=== PATIENT | female | born 1950 | race Caucasian/White ===

== ENCOUNTER 2018-10-10 09:51 | Outpatient (CLI) | payer MEDICARE, SELFPAY ==
[2018-10-10 10:36] LABS: ALT 38 U/L (12-78); AST 26 U/L (15-37); Albumin 4.1 g/dL (3.4-5.0); Alkaline Phosphatase 116 U/L (46-116); Anion Gap 9.3 mmol/L (3-11); BUN 22 mg/dL (7-18); Bilirubin, Total 0.6 mg/dL (0.2-1.0); CO2 26.7 mmol/L (21.0-32.0); CREATININE 1.58 mg/dL (0.55-1.02); Calcium 9.3 mg/dL (8.5-10.1); Chloride 102 mmol/L (98-107); Estimated GFR 32.52 (mL/min/1.73m2); Glucose 96 mg/dL (70-100); Potassium 4.7 mmol/L (3.5-5.1); Sodium 138 mmol/L (136-145); Total Protein 7.8 g/dL (6.4-8.2)
[2018-10-10 10:58] LABS: Cholesterol 197 mg/dL (50-200); HDL Cholesterol 84 mg/dL (40-60); LDL CHOLESTEROL 102 mg/dL (<100); Triglyceride 84 mg/dL (30-150)
== END 2018-10-10 10:11 ==
PROVIDERS: PCP Family Medicine; Visit Provider Family Medicine
DX: E78.5 Hyperlipidemia, unspecified (principal); E03.9 Hypothyroidism, unspecified
CPT/HCPCS: 36415; 80053; 80061; 83721

== ENCOUNTER 2018-11-13 10:14 | Outpatient (CLI) | payer MEDICARE, SELFPAY ==
[2018-11-13 12:00] LABS: Folate 15.9 ng/mL (8.6-20.0); TSH (W/Ref FT4) 0.75 uIU/mL (0.358-3.74); Vitamin B12 464 pg/mL (193-986)
[2018-11-13 12:05] LABS: ESR 19 MM/HR (0-30)
[2018-11-15 12:11] LABS: Syphilis Serology (RPR) Negative (Negative)
[2018-11-16 09:06] LABS: Thiamine (Vitamin B1), WB 170 nmol/L (70-180)
== END 2018-11-13 10:34 ==
PROVIDERS: PCP Family Medicine; Visit Provider Family Medicine
DX: R47.01 Aphasia (principal); E03.9 Hypothyroidism, unspecified
CPT/HCPCS: 36415; 85652; 82607; 82746; 84425; 84443; 86592

== ENCOUNTER 2019-06-21 08:50 | Outpatient (REF) | payer MEDICARE, SELFPAY ==
[2019-06-21 11:20] LABS: BUN 26 mg/dL (7-18); CREATININE 1.81 mg/dL (0.55-1.02); Calcium 9.4 mg/dL (8.5-10.1); Chloride 104 mmol/L (98-107); Estimated GFR 27.72 (mL/min/1.73m2); Glucose 97 mg/dL (70-100); Potassium 4.5 mmol/L (3.5-5.1); Sodium 141 mmol/L (136-145)
== END 2019-06-21 09:10 ==
LOC: LBN 08:50
PROVIDERS: PCP Family Medicine; Visit Provider Family Medicine
DX: Z01.818 Encounter for other preprocedural examination (principal); F01.50 Vascular dementia, unspecified severity, without behavioral disturbance, psychotic disturbance, mood disturbance, and anxiety; R41.3 Other amnesia
CPT/HCPCS: 80048

== ENCOUNTER 2019-11-09 11:33 | Outpatient (CLI) | payer MEDICARE, SELFPAY ==
[2019-11-09 13:44] LABS: ALT 35 U/L (14-59); AST 20 U/L (15-37); Albumin 4.3 g/dL (3.4-5.0); Alkaline Phosphatase 115 U/L (46-116); Anion Gap 5.6 mmol/L (3-11); BUN 26 mg/dL (7-18); Bilirubin, Total 0.6 mg/dL (0.2-1.0); CO2 30.4 mmol/L (21.0-32.0); CREATININE 1.75 mg/dL (0.55-1.02); Calcium 10.1 mg/dL (8.5-10.1); Chloride 104 mmol/L (98-107); Estimated GFR 28.82 (mL/min/1.73m2); Ferritin 51 ng/mL (8-252); Glucose 81 mg/dL (74-106); Sodium 140 mmol/L (136-145); TSH (W/Ref FT4) 1.81 uIU/mL (0.36-3.74); Total Protein 7.4 g/dL (6.4-8.2); Vitamin B12 462 pg/mL (193-986)
[2019-11-12 05:14] LABS: Vitamin D 25 Total 48.4 ng/ml (30-100)
== END 2019-11-09 11:53 ==
PROVIDERS: PCP Family Medicine; Visit Provider Internal Medicine Sleep Medicine
DX: E55.9 Vitamin D deficiency, unspecified (principal); R53.83 Other fatigue; M25.50 Pain in unspecified joint
CPT/HCPCS: 36415; 80053; 82306; 82607; 82728; 84443

== ENCOUNTER 2019-11-26 16:01 | Outpatient (CLI) | payer MEDICARE, SELFPAY ==
--- NOTE | 2019-11-26 16:11 | DI.RAD_ITS ---
EXAM: XR CHEST 2V PA AND LATERAL INDICATION: 3 MONTHS OF DRY COUGH R05. COMPARISON: ABD FLAT UPRIGHT PA CHEST from 02/26/2011 TECHNIQUE: 2D digital imaging was performed. FINDINGS: Heart size is normal. The aorta is tortuous. The lungs clear. No infiltrate or effusion is seen. There are no visible emphysematous or fibrotic changes. IMPRESSION: No acute abnormality.
--- NOTE | 2019-11-26 16:23 | DI.VRAD_ITS ---
PROCEDURE INFORMATION: Exam: XR Chest, 2 Views Exam date and time: 11/26/2019 4:14 PM Age: 68 years old Clinical indication: Other: 3 months of dry cough TECHNIQUE: Imaging protocol: XR of the chest Views: 2 views. COMPARISON: No relevant prior studies available. FINDINGS: Lungs: Unremarkable. No consolidation. Pleural space: Unremarkable. No pleural effusion. No pneumothorax. Heart/Mediastinum: Unremarkable. No cardiomegaly. Bones/joints: Unremarkable. Other findings: Contrast within loops of bowel in the abdomen IMPRESSION: No acute process Dictated and Authenticated by: Rizwana Borja MD. Ordering:JAYNE Prescott MD
== END 2019-11-26 16:21 ==
PROVIDERS: PCP Family Medicine; Visit Provider Family Medicine
DX: R05 Cough (principal)
CPT/HCPCS: 71046

== ENCOUNTER 2019-11-27 12:56 | Outpatient (CLI) | payer MEDICARE, SELFPAY ==
--- NOTE | 2019-11-27 13:12 | PFT_ITS ---
PULMONARY FUNCTION TEST REPORT DATE OF SERVICE: November 27, 2019 REQUESTING PROVIDER: Kenyon Gifford D.O. Spirometry shows no evidence of obstructive airways disease, no bronchodilator response. Lung volumes show mild restriction with very severe reduction in ERV. This may be related to chest wall restriction, neuromuscular respiratory dysfunction or obesity. Diffusion capacity moderately reduced, which is normal when corrected to alveolar volume. Airways resistance normal. IMPRESSION: Mild restrictive pattern with very severely reduced ERV. This could correlate with underlying obesity or respiratory neuromuscular dysfunction or chest wall restriction. Therefore clinical correlation recommended. When compared to previous study from 06/22/10, the patient has a 370 cc's decline in FVC. FEV1 has declined by 340 cc's. On previous study it appears that total lung capacity or diffusion capacity were not measured. This constellation of findings can also be seen in restrictive lung disease. ROBERTA/kerwin D/
[2019-11-27] MEDS: Inhaler, Assist Device 1 EACH MC (14:06)
[2019-11-27] MEDS: Albuterol HFA 18 GM 200 PUFF INH IH (14:06)
== END 2019-11-27 13:16 ==
PROVIDERS: PCP Family Medicine; Visit Provider Family Medicine
DX: R05 Cough (principal); R94.2 Abnormal results of pulmonary function studies
CPT/HCPCS: 94060; 94150; 94726; 94729

== ENCOUNTER 2020-03-20 22:00 | Emergency (ER) | payer MEDICARE, SELFPAY ==
[2020-03-20] VITALS (7 sets, daily range): BP systolic 140–166; BP diastolic 61–112; PULSE 76–105; RESP 16–25; TEMP 36.7; O2SAT 94–98
--- NOTE | 2020-03-20 22:17 | ED.GENADUL_ITS ---
Discharge Plan Disposition Patient Disposition: HOME Condition: Improving Discharge Details Chief Complaint: Chest Pain Clinical Impression: Atypical chest pain Primary Care Provider: Kenyon Gifford ED Provider: Buck Merrill Home Meds and New Rx's Prescriptions: Continued hydroxyzine HCl 10 mg tablet 10 mg PO TID PRNRF: 0 sumatriptan succinate 100 mg tablet 100 mg PO PRN RF: 0 magnesium oxide 500 mg capsule 500 mg PO DAILY RF: 0 nortriptyline 50 mg capsule 150 mg PO HS RF: 0 cholecalciferol (vitamin D3) 1,000 UNIT tablet 2,000 unit PO DAILY RF: 0 Refresh Optive Sensitive (PF) 1 EACH dropperette 1 ea OU PRN PRNRF: 0 cetirizine [Zyrtec] 10 mg tablet 10 mg PO DAILY PRNRF: 0 Restasis 0.05 % dropperette 1 drp OP DAILY RF: 0 coenzyme Q10 100 mg capsule 200 mg PO DAILY RF: 0 magnesium gluconate [Mag-G] 27 mg magnesium (500 mg) tablet 27 mg PO DAILY RF: 0 acetaminophen [Tylenol] 325 mg tablet 650 mg PO Q4H PRNRF: 0 clindamycin phosphate 1 % solution 1 applic Topical BID Qty: 60 RF: 0 albuterol sulfate 90 mcg/actuation HFA aerosol inhaler 2 puff IH Q6H PRNRF: 0 venlafaxine 150 mg capsule,extended release 24hr See Rx Instructions PO DAILY RF: 0 escitalopram oxalate [Lexapro] 5 mg tablet 5 mg PO .COMPLEX RF: 0 gabapentin 300 mg capsule 300 mg PO BID RF: 0 Hold Instructions: Home Medication placed on hold at Doctor's office levothyroxine [Synthroid] 75 mcg tablet 75 mcg PO DAILY Qty: 90 RF: 3 pravastatin 20 mg tablet 20 mg PO DAILY Qty: 90 RF: 3 Hold Instructions: Home Medication placed on hold at Doctor's office aspirin [Adult Aspirin Regimen] 81 mg tablet,delayed release (DR/EC) 81 mg PO DAILY RF: 0 Arnuity Ellipta 200 mcg/actuation blister with device 1 inh IH HS RF: 0 benzonatate [Tessalon Perles] 100 mg capsule 100 mg PO TID PRN (Reason: cough) Qty: 90 RF: 0 Trelegy Ellipta 100-62.5-25 mcg blister with device 1 inh IH DAILY RF: 0 Discharge Instructions Instructions: Chest Pain (ED) Additional Instructions: Please continue your regularly prescribed medications. Avoid fatty, fried, spicy or acidic foods 3 to 4 hours before bedtime. May use Tums if needed for upset stomach. We will ask care management to arrange an outpatient follow-up for you in primary care clinic as you are kidney function showed you to be slightly dehydrated. May continue small, frequent sips of fluids to maintain hydration. Return to the emergency department for any acute concerns. Medical Decision Making 69-year-old female with an extensive past medical history including mood disorder, fibromyalgia, chronic pain. She presents with right anterior chest to midline discomfort that began at home, was severe and spasmodic, responded somewhat to one sublingual nitroglycerin given by EMS. She arrives improving but mildly anxious. Differential diagnosis is broad including esophagitis, exacerbation of chronic pain, atypical chest pain. Patient given small fluid bolus, anxiolytic, GI cocktail. Patient improved following intervention. Her laboratories notable for mild worsening of chronic renal insufficiency with BUN today of 35, creatinine 2.1. Remainder the electrolytes are reassuring, normal total bili. Troponin negative. Patient observed and repeat troponin obtained and negative. Patient improved. May be mild gastritis which I discussed with her. She will continue her regular medications and avoid acidic foods. She stable and improved at this time. We will discharged home. We will ask care management to arrange a follow-up for her to recheck her mild increased renal function. ECG Data Attestation: I personally reviewed and interpreted this ECG (s) as follows: Interpretation: Somewhat wandering baseline, normal sinus rhythm with a rate of 94, the QRS is narrow, there is nonspecific ST segment flattening throughout, no ST segment elevation, the QTC is 438 Repeat EKG at 00 58 hours reveals normal sinus rhythm with a rate of 73, the QRS is narrow, there is nonspecific ST segment flattening throughout, no ST segment elevation. HPI General Mode of arrival: EMS . Date/Time Provider Initiated Documentation: 03/20/20 23:01 . Limitations to Documentation: no limitations . Information obtained by: patient and EMS . History of Present Illness 69 year old F presents to the emergency department with the chief complaint of Chest pain, right, intermittent, described as similar to prior episodes, Quality is described as sharp, and is localized to the chest and right. Patient reports no radiation. Patient started experiencing this hour(s) and it has been intermittent. No relieving factors improve symptom(s), No exacerbating factors reported . Patient notes denies cough and shortness of breath. Patient did receive the following treatments prior to arrival, other (Nitroglycerin x1) Related Data Home Medications Medication Instructions Recorded Confirmed cholecalciferol (vitamin D3) 2,000 unit PO DAILY 01/29/13 03/20/20 Refresh Optive Sensitive (PF) 1 ea OU PRN PRN 05/01/13 02/28/20 hydroxyzine HCl 10 mg tablet 10 mg PO TID PRN tab 10/27/18 03/20/20 cetirizine 10 mg tablet 10 mg PO DAILY PRN tab 06/11/19 03/20/20 sumatriptan succinate 100 mg tablet 100 mg PO PRN tab 06/21/19 02/28/20 cyclosporine 0.05 % eye drops in a 1 drp OP DAILY each 08/21/19 03/20/20 dropperette magnesium oxide 500 mg capsule 500 mg PO DAILY 08/30/19 02/28/20 acetaminophen 325 mg tablet 650 mg PO Q4H PRN tab 10/03/19 03/20/20 coenzyme Q10 100 mg capsule 200 mg PO DAILY cap 10/03/19 03/20/20 magnesium gluconate 27 mg 27 mg PO DAILY tab 10/03/19 03/20/20 magnesium (500 mg) tablet clindamycin phosphate 1 % topical 1 applic TOPICAL BID #60 ml 10/29/19 03/20/20 solution albuterol sulfate 90 mcg/actuation 2 puff IH Q6H PRN 11/07/19 02/28/20 aerosol inhaler escitalopram oxalate 5 mg tablet 5 mg PO .COMPLEX 01/09/20 03/20/20 gabapentin 300 mg capsule 300 mg PO BID cap 01/09/20 02/28/20 venlafaxine 150 mg See Rx Instructions PO DAILY 01/09/20 02/28/20 capsule,extended release 24 hr nortriptyline 50 mg capsule 150 mg PO HS cap 01/25/20 02/28/20 levothyroxine 75 mcg tablet 75 mcg PO DAILY #90 tab-cap 02/11/20 03/20/20 pravastatin 20 mg tablet 20 mg PO DAILY #90 tab-cap 02/14/20 03/20/20 aspirin 81 mg tablet,delayed 81 mg PO DAILY 02/27/20 03/20/20 release fluticasone furoate 200 1 inh IH HS each 03/12/20 mcg/actuation blister powder for inhalation benzonatate 100 mg capsule 100 mg PO TID PRN #90 cap 03/13/20 03/20/20 fluticasone fur. 100 mcg-umeclid 1 inh IH DAILY 03/20/20 62.5 mcg-vilant 25 mcg inhalat.powder Previous Rx's Medication Instructions Recorded clindamycin phosphate 1 % topical 1 applic TOPICAL BID #60 ml 10/29/19 solution levothyroxine 75 mcg tablet 75 mcg PO DAILY #90 tab-cap 02/11/20 pravastatin 20 mg tablet 20 mg PO DAILY #90 tab-cap 02/14/20 benzonatate 100 mg capsule 100 mg PO TID PRN #90 cap 03/13/20 Allergies Allergy/AdvReac Type Severity Reaction Status Date / Time aspirin AdvReac Intermediate Nausea Verified 01/25/20 09:59 General Stated Complaint: Chest Pain IVY: 2 Review of Systems Narrative: Denies any recent illness, she has had weeks to months of cough, fibromyalgia pains, depression that are all unchanged. Has had chronic head pain since craniotomy at [facility]. No recent travel, fever, known sick contacts. 8 systems reviewed and otherwise negative [facility] Medical History Anxiety state (Chronic 01/18/12) Cholelithiasis without obstruction (Resolved 01/18/12) Chronic kidney disease (CKD), stage III (moderate) (Chronic 01/18/12) Chronic pain (Chronic 01/19/05) 01/2005 AT LEAST; H/O Fentanyl & oxycodone, tapered off 09/25/16. 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) Fatigue (Resolved 01/11/14) Frequent falls (Chronic 10/14/15) Daily, legs stop working, has occurred for years, no injuries, no LOC Gastroesophageal reflux disease with esophagitis (Resolved 01/18/12) Hyperlipidemia (Chronic 01/18/12) Hypothyroidism (Chronic 01/18/12) 05/2004 MILD TSH ELEVATIOIN, BEGAN REPLACEMENT 50 MCG Leg pain, right (Chronic 09/07/16) circumferential buttock to mid lower leg, R, since 07/2016; Duplex US neg Memory impairment (Chronic 01/18/12) Migraine (Chronic 01/18/12) 12/[place] [facility] [place] BOTOX INJ ineffective; Dr Elizondo -> Dr Saul Wells 06/2016: Botox; Transcranial Magnetic Stimulator, failed Erenumab 02/06, starte Emgality 06/05/19 Obesity (BMI 30.0-34.9) (Chronic 01/18/12) Other irritable bowel syndrome (Chronic 11/23/16) Pain, joint, multiple sites (Chronic 01/18/12) Paresthesia of upper limb (Chronic 05/01/13) PARESTHESIAS BEGAN 2011; LEFT ARM, ?CERVICAL, ?BRACHIAL Primary fibromyalgia syndrome (Chronic 01/19/05) Skin lesion (Chronic 07/26/17) abdominal skin wounds ; see Dr Montalvo visit 01/2015 Sleep disturbance (Chronic 12/13/14) Vitamin D deficiency (Chronic 01/18/12) Surgical History Status post craniotomy (Inactive) 08/03/19 [facility] [place] Neurosurgery. right frontal for resection of meningioma Family History Mother , cervical ca at age 86. Cervical cancer Father Dementia Sister Multiple sclerosis Son No problems noted. Son No problems noted. Social History Smoking/Tobacco Use Status: Never Alcohol Intake: never Drug use: Never Substance use type: does not use Household members: spouse Housing: house Number of Children: 2 Communication Needs: Hard of Hearing and Corrective Lenses Current gender identity: female What is your relationship status?: How often do you talk on the phone with friends or family?: three or more times per week Panel score (0-1 are the most socially isolated patients): 2 What type of physical activity do you participate in: none and other Details: ot, pt Duration: 45-60 minutes/day Frequency: 1-2 times per week Seatbelt use: always Drive intox or ride w/intox car driver: No Working smoke detector in home: Yes Fire extinguisher in home: Yes Carbon monox detector in home: Yes Do you feel safe at home: Yes Do you feel safe in your relationship?: Yes Exam Narrative Exam Narrative: GEN: awake, alert, oriented 3. Pleasant, well groomed, interactive. HEAD: Normocephalic, atraumatic ENT: Mucous membranes moist, oropharynx unremarkable, External ear exam unremarkable EYES: PERRL, EOMI NECK: Full ROM, no MELISSA, no menigismus CHEST/RESP: Nontender, clear to auscultation bilateral, no wheeze/rhonchi/rales CARDIOVASCULAR: RRR, no murmur, rub alex. 2+ Rad pulse bilateral ABDOMEN: Soft, minimal epigastric tenderness without rebound or guarding, no m ass. +Bowel sounds EXT: Full ROM, no edema, no rash Neuro: Grossly normal neurologic exam, conversant, interactive. Psych: Speech fluent, thoughts congruent, affect anxious Course Vital Signs Vital signs: Vital Signs Temperature 36.7 C 03/20/20 21:59 Pulse 105 H 03/20/20 21:59 Respiratory Rate 16 03/20/20 21:59 Blood Pressure 153/112 H 03/20/20 21:59 Pulse Oximetry 96 03/20/20 21:59 Temperature 36.7 C 03/20/20 21:59 Temperature Source Oral 03/20/20 21:59 Pulse 105 H 03/20/20 21:59 Respiratory Rate 16 03/20/20 21:59 Respiratory Effort 03/20/20 22:05 Blood Pressure 153/112 H 03/20/20 21:59 Blood Pressure Position Sitting 03/20/20 21:59 Pulse Oximetry 96 03/20/20 21:59 Oxygen Delivery Method Room Air 03/20/20 21:59 Oxygen Flow Rate 0 03/20/20 21:59
[2020-03-20 22:28] LABS: Abs Immature Grans 0.02 k/cumm (0.0-0.09); Absolute Basophil Count 0.02 k/cumm (0.0-0.2); Absolute Eosinophil Count 0.28 k/cumm (0.0-0.7); Absolute Lymphocyte Count 2.48 k/cumm (1.2-3.4); Absolute Monocyte Count 0.84 k/cumm (0.11-0.7); Absolute Neutrophil Count 4.88 k/cumm (1.2-6.7); Basophils % 0.2; Eosinophils % 3.3; HCT 41.4 % (36.0-46.0); HGB 13.9 g/dL (12.0-15.5); Immature Grans % 0.2 %; Lymphocytes % 29.1; Mean Corp. HGB Concentration 33.6 g/dL (32.0-36.0); Mean Corpuscular Hemoglobin 30.3 pg (27.0-33.0); Mean Corpuscular Volume 90.2 fL (80-95); Mean Platelet Volume 9.9 fL (8.0-11.0); Monocytes % 9.9; Neutrophils % 57.3; Platelet Count 252 x1000/uL (130-400); RBC 4.59 m/cumm (4.00-5.20); RBC Distribution Width 13.7 % (11.7-14.6); White Blood Cell Count 8.52 k/cumm (4.4-10.8)
[2020-03-20] MEDS: LORazepam 2 MG/ML VIAL 0.5 MG IVP (22:34)
[2020-03-20] MEDS: Normal Saline 1,000 ML 125 ML IV (22:35)
[2020-03-20 22:54] LABS: ALT 50 U/L (14-59); AST 38 U/L (15-37); Albumin 3.9 g/dL (3.4-5.0); Alkaline Phosphatase 69 U/L (46-116); Anion Gap 10.8 mmol/L (3-11); BUN 35 mg/dL (7-18); Bilirubin, Total 0.6 mg/dL (0.2-1.0); CO2 23.2 mmol/L (21.0-32.0); CREATININE 2.19 mg/dL (0.55-1.02); Calcium 9.4 mg/dL (8.5-10.1); Chloride 102 mmol/L (98-107); Estimated GFR 22.18 (mL/min/1.73m2); Glucose 126 mg/dL (74-106); Magnesium 2.2 mg/dL (1.8-2.4); Potassium 3.8 mmol/L (3.5-5.1); Sodium 136 mmol/L (136-145); Total Protein 7.3 g/dL (6.4-8.2); Troponin I < 0.05 ng/Ml (<0.06)
--- NOTE | 2020-03-20 23:10 | DI.RAD_ITS ---
EXAM: XR CHEST 2V PA LATERAL CLINICAL HISTORY: substernal chest pressure TECHNIQUE: 2D digital imaging was performed. COMPARISON: XR CHEST 2V PA LATERAL from 11/26/2019 FINDINGS: The heart is not enlarged. The lungs are clear and well expanded. No pleural effusion seen. Mediastin al contours appear intact. IMPRESSION: Normal chest
--- NOTE | 2020-03-20 23:18 | DI.VRAD_ITS ---
PROCEDURE INFORMATION: Exam: XR Chest, 2 Views Exam date and time: 03/20/2020 11:01 PM Age: 69 years old Clinical indication: Sternal or substernal pain; Additional info: Substernal chest pressure TECHNIQUE: Imaging protocol: XR of the chest Views: 2 views. COMPARISON: CR XR CHEST 2V PA LATERAL 11/26/2019 4:11 PM FINDINGS: Lungs: Clear lungs. Pleural space: No pneumothorax. No sizable pleural effusion. Heart/Mediastinum: No cardiomegaly. Bones/joints: Unremarkable. IMPRESSION: Clear lungs. Dictated and Authenticated by: Reji Walls MD. Ordering:ALESIA Jane MD
[2020-03-21] VITALS (8 sets, daily range): BP systolic 140–155; BP diastolic 63–118; PULSE 62–89; RESP 15–22; TEMP 36.7; O2SAT 93–97
[2020-03-21 01:32] LABS: Troponin I < 0.05 ng/Ml (<0.06)
--- NOTE | 2020-03-21 05:51 | NUR.NOTE ---
referral faxed to pcp for follow up care Nursing Note:
== END 2020-03-21 01:45 | disposition home or self-care (01) ==
PROVIDERS: Emergency Provider Emergency Medicine; PCP Family Medicine
DX: R07.89 Other chest pain (principal); F41.9 Anxiety disorder, unspecified
CPT/HCPCS: 36415; 80053; 93005; 96374; 99284; 71046; 83735; 84484; 85025; 93010; J2060

== ENCOUNTER 2020-03-25 01:57 | Outpatient (CLI) | payer MEDICARE, SELFPAY ==
--- NOTE | 2020-03-25 11:00 | DI.MAMMO_ITS ---
EXAM: MAMMO SCREENING CLINICAL HISTORY: screening TECHNIQUE: Mammograms were interpreted according to the usual protocol including computer analysis w [employer] CAD system, tomosynthesis and C-view imaging. COMPARISON: 2012 and 2016 FINDINGS: The breasts are composed of mainly fatty density , Breast Density category A. No suspicious masses or suspicious microcalcifications are seen. No skin thickening or abnormal axillary lymph nodes are seen. There has been no significant change from prior exams. IMPRESSION: BI-RADS category 1, negative. Yearly screening mammography is recommended. Breast density category A, fatty density.
== END 2020-03-25 02:17 ==
PROVIDERS: PCP Family Medicine; Visit Provider Family Medicine
DX: Z12.31 Encounter for screening mammogram for malignant neoplasm of breast (principal)
CPT/HCPCS: 77063; 77067

== ENCOUNTER 2020-03-28 02:30 | Outpatient (CLI) | payer MEDICARE, SELFPAY ==
[2020-04-02 12:24] LABS: Misc Referral (MAYO) See Comments
== END 2020-03-28 02:50 ==
PROVIDERS: PCP Family Medicine; Visit Provider Internal Medicine
DX: R04.2 Hemoptysis (principal)
CPT/HCPCS: 36415; 82785; 86003

== ENCOUNTER 2020-04-28 13:34 | Emergency (ER) | payer MEDICARE, SELFPAY ==
[2020-04-28 13:41] VITALS: BP 147/98; PULSE 98; RESP 18; TEMP 36.7; O2SAT 98
--- NOTE | 2020-04-28 13:41 | ED.GENADUL_ITS ---
Discharge Plan Disposition Patient Disposition: HOME Condition: Stable Discharge Details Chief Complaint: PsychEval Clinical Impression: Anxiety, Restlessness Primary Care Provider: Kenyon Gifford ED Provider: Nuria Ku Home Meds and New Rx's Prescriptions: New lorazepam [Ativan] 0.5 mg tablet 0.5 mg PO BID PRN (Reason: anxiety) Qty: 7 RF: 0 Continued hydroxyzine HCl 10 mg tablet 10 mg PO TID PRNRF: 0 cholecalciferol (vitamin D3) 1,000 UNIT tablet 2,000 unit PO DAILY RF: 0 cetirizine [Zyrtec] 10 mg tablet 10 mg PO DAILY PRNRF: 0 Restasis 0.05 % dropperette 1 drp OP DAILY RF: 0 coenzyme Q10 100 mg capsule 200 mg PO DAILY RF: 0 magnesium gluconate [Mag-G] 27 mg magnesium (500 mg) tablet 27 mg PO DAILY RF: 0 acetaminophen [Tylenol] 325 mg tablet 650 mg PO Q4H PRNRF: 0 clindamycin phosphate 1 % solution 1 applic Topical BID Qty: 60 RF: 0 escitalopram oxalate [Lexapro] 5 mg tablet 15 mg PO RF: 0 levothyroxine [Synthroid] 75 mcg tablet 75 mcg PO DAILY Qty: 90 RF: 3 pravastatin 20 mg tablet 20 mg PO DAILY Qty: 90 RF: 3 Hold Instructions: Home Medication placed on hold at Doctor's office Arnuity Ellipta 200 mcg/actuation blister with device 1 inh IH HS RF: 0 Trelegy Ellipta 100-62.5-25 mcg blister with device 1 inh IH DAILY RF: 0 baclofen 10 mg tablet 10 mg PO BID PRN PRNRF: 0 Discharge Instructions Instructions: Restless Legs Syndrome (ED), Anxiety (ED) Additional Instructions: Take the Ativan as needed and directed for anxiety or sleep. Stop taking the baclofen. Follow-up with [facility] human services for counseling as directed. Follow-up with your scheduled appointment with your counselor Sandy on Tuesday. Return to the emergency department if you develop any worsening or concerning symptoms. Discharge Data Discharge Date/Time-TO BE ENTERED AT DEPARTURE: 04/28/20 19:30 Discharge Physician: Nuria Ku Medical Decision Making 6282 -- 69-year-old female with a history of meningioma with resection in July 2019, anxiety, depression, fibromyalgia, obesity, obstructive sleep apnea presents for anxiety and restlessness since yesterday after starting baclofen. Review of baclofen side effects note that it can cause a psychiatric disturbance. There is no report of alcohol, drug use, fall or known recent illness. BP hypertensive, remainder vitals within normal limits. She appears anxious, agitated and restless, moving all over stretcher and unable to stay still alternating with episodes when she appears to fall asleep and remain still, only to wake up and appear restless and agitated again and requesting to leave. Differential diagnosis includes possible medication reaction, acute psychosis, severe anxiety, CVA, recurrence of brain tumor, electrolyte abnormality, dehydration, UTI. Will give a 2 mg IM dose of Ativan in order to obtain CT and blood work. Will check screening labs including TSH, urinalysis. 1520 -- CT head negative. Patient has remained calm after Ativan. Labs reviewed. Patient has a history of chronic kidney disease. Normal white blood cell count. Urinalysis negative for infection. Patient medically cleared. Patient reassessed and sleeping, unable to arouse from sleep, will reassess to be able to speak with mental health. 173 --patient reassessed -she is more awake and alert. She appears slightly to moderately anxious. Mental health paged to evaluate. Will order a p.o. dose of Ativan to help with increasing anxiety. 184 --patient evaluated by mental health at bedside. She denies homicidal or suicidal ideation. Patient and feel comfortable with her going home. Plan is for follow-up with in [place] for counseling as well as with her own counselor Sandy on Tuesday. Patient's son Zachery will be staying with them tonight. Case discussed with [facility] neurology covering for patient's neurologist Dr. White. Agree with plan for stopping baclofen as this may have been a reaction and to start Ativan as needed for her anxiety and restlessness. Will send with a few tabs as well as prescription. Usual and customary return precautions given prior to discharge. Medical Records Medical records reviewed: Yes I reviewed the patient's medical records. Imaging Data Radiologic Study: Radiologist's impression: CT HEAD WO CLINICAL HISTORY: altered mental status, h/o brain surgery. TECHNIQUE: Imaging Protocol: Axial computed tomography images with coronal and sagittal reformatted images were created and reviewed COMPARISON: No exams were available for comparison FINDINGS: Ventricles and Extra axial spaces: Normal in size and morphology for the patient's age. Hemorrhage: None. Cerebral parenchyma: There are areas of decreased attenuation in the white matter consistent with small vessel ischemic disease. Midline shift: None. Brainstem/Cerebellum: Normal. Calvarium: Status post right craniotomy. Visualized Paranasal sinuses/Mastoids: Clear. Soft Tissues: Unremarkable. IMPRESSION: No acute intracranial process. Lab Data Lab results reviewed: Yes I reviewed the patient's lab results. Labs: Laboratory Tests Range/Units 04/28/20 04/28/20 04/28/20 14:40 14:40 15:35 WBC (4.4-10.8) k/cumm 8.44 RBC (4.00-5.20) m/cumm 4.41 Hgb (12.0-15.5) g/dL 13.2 Hct (36.0-46.0) % 39.6 MCV (80-95) fL 89.8 MCH (27.0-33.0) pg 29.9 MCHC (32.0-36.0) g/dL 33.3 RDW (11.7-14.6) % 13.4 Plt Count (130-400) x1000/uL 331 MPV (8.0-11.0) fL 10.3 Immature Gran % % 0.2 Neutrophils % 64.7 Lymphocytes % 21.8 Monocytes % 10.8 Eosinophils % 2.3 Basophils % 0.2 Absolute Neutrophils (1.2-6.7) k/cumm 5.46 Absolute Lymphocytes (1.2-3.4) k/cumm 1.84 Absolute Monocytes (0.11-0.7) k/cumm 0.91 H Absolute Eosinophils (0.0-0.7) k/cumm 0.19 Absolute Basophils (0.0-0.2) k/cumm 0.02 Sodium (136-145) mmol/L 146 H Potassium (3.5-5.1) mmol/L 3.9 Chloride (98-107) mmol/L 110 H Carbon Dioxide (21.0-32.0) mmol/L 23.7 Anion Gap (3-11) mmol/L 12.3 H BUN (7-18) mg/dL 33 H Creatinine (0.55-1.02) mg/dL 1.78 H Estimated GFR/1.73 m2 (mL/min/1.73m2) 28.18 Glucose (74-106) mg/dL 92 Calcium (8.5-10.1) mg/dL 9.5 Total Bilirubin (0.2-1.0) mg/dL 0.8 AST (15-37) U/L 46 H ALT (14-59) U/L 48 Alkaline Phosphatase (46-116) U/L 82 Total Protein (6.4-8.2) g/dL 6.9 Albumin (3.4-5.0) g/dL 4.0 TSH (0.36-3.74) uIU/mL 1.31 Urine Color (Yellow) Yellow Urine Clarity (Clear) Clear Urine pH (5-8) 5.5 Ur Specific Trufant (1.005-1.025) 1.025 Urine Protein (Negative) mg/dL 100 H Urine Ketones (Negative) mg/dL Negative Urine Blood (Negative) Moderate H Urine Nitrite (Negative) Negative Urine Bilirubin (Negative) Negative Urine Urobilinogen (Up TO 0.2) EU/dL 0.2 Ur Leukocyte Esterase (Negative) Negative Urine RBC (0-2) HPF 5-10 H Urine WBC (0-5) HPF Negative Ur Epithelial Cells (Negative) HPF Few Urine Crystals (Negative) HPF Negative Urine Bacteria (Negative) HPF Few Urine Casts (Negative) LPF 3-5 hyaline Urine Mucus (Negative) Negative Urine Other (Negative) Few renal Ur Culture Indicated? No Urine Glucose (Negative) mg/dL Negative HPI General Mode of arrival: wheelchair . Date/Time Provider Initiated Documentation: 04/28/20 13:37 . Limitations to Documentation: altered mental status . Information obtained by: patient and family . HPI Narrative: Patient is a 69-year-old female with a history of meningioma with resection in July 2019, anxiety and depression, restless leg syndrome, obesity, fibromyalgia and sleep apnea presents for agitation and restlessness since yesterday. states that she had been taking ropinirole for the past 3 months for her restless leg syndrome but this was switched to baclofen which she started yesterday. He states he has been very anxious and restless since then and has been unable to sit still. He states she did sleep for 7 hours last night. He states shortly after waking this morning she became very anxious and restless frequently sitting up and standing and pacing around the house. He states she does have a history of suicidal thoughts but no known attempt. He denies any known alcohol or drug use. He denies any known history of any injury or fall, recent illness including fever, vomiting, diarrhea or known urinary symptoms. He denies any recent travel, recent antibiotics or recent known exposure to coronavirus. He denies any other new medications. Of note, she had an MRI brain w/w/o contrast in February 2020 which noted 1. Expected postoperative changes with no evidence of meningioma recurrence. 2. Stable mild chronic small vessel disease. Related Data Home Medications Medication Instructions Recorded Confirmed cholecalciferol (vitamin D3) 2,000 unit PO DAILY 01/29/13 04/28/20 hydroxyzine HCl 10 mg tablet 10 mg PO TID PRN tab 10/27/18 04/28/20 cetirizine 10 mg tablet 10 mg PO DAILY PRN tab 06/11/19 04/28/20 cyclosporine 0.05 % eye drops in a 1 drp OP DAILY each 08/21/19 04/28/20 dropperette acetaminophen 325 mg tablet 650 mg PO Q4H PRN tab 10/03/19 04/28/20 coenzyme Q10 100 mg capsule 200 mg PO DAILY cap 10/03/19 04/28/20 magnesium gluconate 27 mg 27 mg PO DAILY tab 10/03/19 04/28/20 magnesium (500 mg) tablet clindamycin phosphate 1 % topical 1 applic TOPICAL BID #60 ml 10/29/19 04/28/20 solution escitalopram oxalate 5 mg tablet 15 mg PO 01/09/20 03/21/20 levothyroxine 75 mcg tablet 75 mcg PO DAILY #90 tab-cap 02/11/20 04/28/20 pravastatin 20 mg tablet 20 mg PO DAILY #90 tab-cap 02/14/20 04/28/20 fluticasone furoate 200 1 inh IH HS each 03/12/20 04/28/20 mcg/actuation blister powder for inhalation fluticasone fur. 100 mcg-umeclid 1 inh IH DAILY 03/20/20 04/28/20 62.5 mcg-vilant 25 mcg inhalat.powder baclofen 10 mg PO BID PRN PRN 04/28/20 04/28/20 lorazepam [Ativan] 0.5 mg PO BID PRN #7 tab 04/28/20 Previous Rx's Medication Instructions Recorded clindamycin phosphate 1 % topical 1 applic TOPICAL BID #60 ml 10/29/19 solution levothyroxine 75 mcg tablet 75 mcg PO DAILY #90 tab-cap 02/11/20 pravastatin 20 mg tablet 20 mg PO DAILY #90 tab-cap 02/14/20 lorazepam [Ativan] 0.5 mg PO BID PRN #7 tab 04/28/20 Allergies Allergy/AdvReac Type Severity Reaction Status Date / Time aspirin AdvReac Intermediate Nausea Verified 01/25/20 09:59 General IVY: 2 Review of Systems Unobtainable due to mental status [facility] Medical History (Updated 04/28/20 @ 19:10 by Nuria Ku DO) Anxiety state (Chronic 01/18/12) Cholelithiasis without obstruction (Resolved 01/18/12) Chronic kidney disease (CKD), stage III (moderate) (Chronic 01/18/12) Chronic pain (Chronic 01/19/05) 01/2005 AT LEAST; H/O Fentanyl & oxycodone, tapered off 09/25/16. Medical Marijuanna begun 07/27/2016; h/o chronic pain workshop (, also [facility] x 2) Congenital absence of kidney (Acute) Depressive disorder (Chronic 01/18/12) Disorder of bone and articular cartilage (Chronic 01/18/12) Fatigue (Resolved 01/11/14) Frequent falls (Chronic 10/14/15) Daily, legs stop working, has occurred for years, no injuries, no LOC Gastroesophageal reflux disease with esophagitis (Resolved 01/18/12) Hyperlipidemia (Chronic 01/18/12) Hypothyroidism (Chronic 01/18/12) 05/2004 MILD TSH ELEVATIOIN, BEGAN REPLACEMENT 50 MCG Leg pain, right (Chronic 09/07/16) circumferential buttock to mid lower leg, R, since 07/2016; Duplex US neg Memory impairment (Chronic 01/18/12) Migraine (Chronic 01/18/12) 12/2011 [facility] [place] NEURO; BOTOX INJ ineffective; Dr Elizondo -> Dr Saul Wells 06/2016: Botox; Transcranial Magnetic Stimulator, failed Erenumab 02/06, starte Emgality 06/05/19 Obesity (BMI 30.0-34.9) (Chronic 01/18/12) Other irritable bowel syndrome (Chronic 11/23/16) Pain, joint, multiple sites (Chronic 01/18/12) Paresthesia of upper limb (Chronic 05/01/13) PARESTHESIAS BEGAN 2011; LEFT ARM, ?CERVICAL, ?BRACHIAL Primary fibromyalgia syndrome (Chronic 01/19/05) Skin lesion (Chronic 07/26/17) abdominal skin wounds ; see Dr Montalvo visit 01/2015 Sleep disturbance (Chronic 12/13/14) Vitamin D deficiency (Chronic 01/18/12) Surgical History Status post craniotomy (Inactive) 08/03/19 [facility] [place] Neurosurgery. right frontal for resection of meningioma Social History Smoking/Tobacco Use Status: Never Alcohol Intake: never Drug use: Never Substance use type: does not use Household members: spouse Housing: house Number of Children: 2 Communication Needs: Hard of Hearing and Corrective Lenses Current gender identity: female What is your relationship status?: How often do you talk on the phone with friends or family?: three or more times per week Panel score (0-1 are the most socially isolated patients): 2 What type of physical activity do you participate in: none and other Details: ot, pt Duration: 45-60 minutes/day Frequency: 1-2 times per week Seatbelt use: always Drive intox or ride w/intox commercial collections driver: No Working smoke detector in home: Yes Fire extinguisher in home: Yes Carbon monox detector in home: Yes Do you feel safe at home: Yes Do you feel safe in your relationship?: Yes Exam Const General: acute distress moderate (agitated) and anxious Orientation: alert and awake [facility] Head: normal to inspection Face and sinus: normal facial exam Eyes General: appearance normal, both eyes and all related structures Pupils: PERRL EOM: EOM intact bilaterally Neck Neck: normal visual inspection and No submandibular swelling Lymphatic: no lymphadenopathy noted Chest Chest: normal inspection of the chest and no tenderness Resp Effort & Inspection: normal respiratory effort and able to speak in complete sentences Auscultation: clear to auscultation bilaterally Cardio Rate: regular rate Rhythm: regular rhythm GI Inspection: normal to inspection Palpation: soft, not firm, not rigid and nontender Auscultation: normal bowel sounds Skin General skin exam: no rashes or lesions noted Neuro General: patient alert, patient awake, patient oriented x3, moves all extremities and no focal motor deficits Cognition: normal cognition Speech: speech normal Motor: muscle tone normal throughout Sensory Exam: no sensory deficits noted Extrem General: normal to inspection, full ROM, capillary refill normal, no calf tenderness bilaterally and no edema Psych Appearance: grossly normal and disheveled Mental Status: mental status grossly normal Speech and Movement: agitated and restless Mood: labile mood and irritable mood Affect: anxious affect Thought Process: illogical Insight: poor Judgment: poor
--- NOTE | 2020-04-28 14:00 | DI.CT_ITS ---
EXAM: CT HEAD WO CLINICAL HISTORY: altered mental status, h/o brain surgery. TECHNIQUE: Imaging Protocol: Axial computed tomography images with coronal and sagittal reformatted images were created and reviewed COMPARISON: No exams were available for comparison FINDINGS: Ventricles and Extra axial spaces: Normal in size and morphology for the patient's age. Hemorrhage: None. Cerebral parenchyma: There are areas of decreased attenuation in the white matter consistent with sma ll vessel ischemic disease. Midline shift: None. Brainstem/Cerebellum: Normal. Calvarium: Status post right craniotomy. Visualized Paranasal sinuses/Mastoids: Clear. Soft Tissues: Unremarkable. IMPRESSION: No acute intracranial process. Findings were discussed with the emergency department on the date of the examination. RADIATION DOSE DELIVERED: 696.9mGy.cm Total DLP DATA REPOSITORY: All CT scans at this facility are submitted to the National Radiology Data Registry (NRDR) Dose Index Registry (DIR) with the [employer] (A[employer]). RADIATION OPTIMIZATION: All CT scans at this facility use at least one of these dose optimization te chniques: automated exposure control; mA and/or kV adjustment per patient size (includes targeted exa ms where dose is matched to clinical indication); or iterative reconstruction.
[2020-04-28 14:01] VITALS: PULSE 102; O2SAT 99
[2020-04-28] MEDS: LORazepam 2 MG/ML VIAL IM (14:14)
[2020-04-28 14:50] LABS: Abs Immature Grans 0.02 k/cumm (0.0-0.09); Absolute Basophil Count 0.02 k/cumm (0.0-0.2); Absolute Eosinophil Count 0.19 k/cumm (0.0-0.7); Absolute Lymphocyte Count 1.84 k/cumm (1.2-3.4); Absolute Monocyte Count 0.91 k/cumm (0.11-0.7); Absolute Neutrophil Count 5.46 k/cumm (1.2-6.7); Basophils % 0.2; Eosinophils % 2.3; HCT 39.6 % (36.0-46.0); HGB 13.2 g/dL (12.0-15.5); Immature Grans % 0.2 %; Lymphocytes % 21.8; Mean Corp. HGB Concentration 33.3 g/dL (32.0-36.0); Mean Corpuscular Hemoglobin 29.9 pg (27.0-33.0); Mean Corpuscular Volume 89.8 fL (80-95); Mean Platelet Volume 10.3 fL (8.0-11.0); Monocytes % 10.8; Neutrophils % 64.7; Platelet Count 331 x1000/uL (130-400); RBC 4.41 m/cumm (4.00-5.20); RBC Distribution Width 13.4 % (11.7-14.6); White Blood Cell Count 8.44 k/cumm (4.4-10.8)
[2020-04-28 15:10] LABS: ALT 48 U/L (14-59); AST 46 U/L (15-37); Alkaline Phosphatase 82 U/L (46-116); Anion Gap 12.3 mmol/L (3-11); BUN 33 mg/dL (7-18); Bilirubin, Total 0.8 mg/dL (0.2-1.0); CO2 23.7 mmol/L (21.0-32.0); CREATININE 1.78 mg/dL (0.55-1.02); Calcium 9.5 mg/dL (8.5-10.1); Chloride 110 mmol/L (98-107); Estimated GFR 28.18 (mL/min/1.73m2); Glucose 92 mg/dL (74-106); Potassium 3.9 mmol/L (3.5-5.1); Sodium 146 mmol/L (136-145); TSH (W/Ref FT4) 1.31 uIU/mL (0.36-3.74); Total Protein 6.9 g/dL (6.4-8.2)
[2020-04-28 15:12] VITALS: PULSE 69; TEMP 36.6; O2SAT 94
[2020-04-28 15:23] VITALS: BP 136/70; PULSE 58; RESP 18; O2SAT 95
[2020-04-28 15:54] LABS: Bilirubin Negative (Negative); Blood Moderate (Negative); Clarity Clear (Clear); Glucose Negative (Negative); Ketones Negative (Negative); Leukocyte Esterase Negative (Negative); Nitrite Negative (Negative); Specific Gravity 1.025 (1.005-1.025); Urobilinogen 0.2 EU/dL (Up TO 0.2); pH 5.5 (5-8)
[2020-04-28 16:12] LABS: WBC Negative HPF (0-5)
[2020-04-28 16:13] LABS: Bacteria Few HPF (Negative); C & S Indicated? No; Casts 3-5 Hyaline LPF (Negative); Crystals Negative HPF (Negative); Epithelial Cells Few HPF (Negative); Mucus Negative (Negative); Other Cells Few Renal (Negative)
[2020-04-28] MEDS: Normal Saline 1,000 ML 1000 ML IV (16:52)
[2020-04-28] MEDS: LORazepam 0.5 MG TAB PO (17:47)
--- NOTE | 2020-04-28 17:48 | NUR.NOTE ---
pt has gone from sleeping to now becoming aggitated agiain. she is thrashing in the bed , I want to go home Nursing Note:
[2020-04-28 17:56] VITALS: BP 152/60; PULSE 56; RESP 18; TEMP 36.4; O2SAT 99
[2020-04-28] MEDS: LORazepam 0.5 MG TAB 2 MG PO (19:28)
--- NOTE | 2020-04-28 23:09 | MHPN_ITS ---
Date of service: 04/28/20 Time of Service: 18:16 Mental Health Progress Note Progress Note Progress Note: Presenting Issue: Client presented to ED for high anxiety and confusion, as well as memory issues, transported by her . Precipitating Factors Client states she was very confused today after trying to go for a walk. She states that her anxiety is very high, 8/10, but did not know why. Client also indicates that she is confused why she is in the ED. Disposition * Behavior: Client is sitting up in her hospital bed, her is also present. Client interrupts her conversation with this gag writer twice to state she can't talk anymore, and lays down, closing her eyes. Client states she is confused, and that she doesn't know where she is. Client appears to have difficulty keeping her eyes open. *Eye Contact: Intermittent eye contact, periods of closing her eyes. *Mood: Anxious *Affect: Restricted *Appetite: Did not assess *Sleep(troubel falling/staying asleep): Did not assess Plan(please elaborate and include that physician is consulted with plan and/or placement): Client will return home with . Client's son, with whom she is able to speak candidly about her mental health, will stay with her tonight. [facility] intake paperwork complete, referral for therapy will be made 04/29/20. Clinician's Name , Title, and Signature. Josie Buck Passenger Barge Master, [facility] Make sure that you are photocopying and submitting this to [facility] records Dept. to be scanned into chart.
--- NOTE | 2020-05-05 20:26 | MHPN_ITS ---
Date of service: 05/05/20 Time of Service: 17:05 Mental Health Progress Note Progress Note Progress Note: Presenting Issue: Client presented to ED duea to suicidal ideations and substance abuse. Precipitating Factors Client states he stopped his methadone maintenance program one month ago, and has been using heroin. Client states that he wants to get help, and that he will overdose on heroin to end his life if he leaves the hospital. Client is tearful with pressured speech, states multiple times he could easily borrow money or sell drugs to buy enough heroin to overdose. Disposition * Behavior: Client is lying down on hospital bed, appears lethargic. *Eye Contact: consistent eye contact *Mood: depressed *Affect: flat *Appetite: did not assess *Sleep(troubel falling/staying asleep): Unknown Plan(please elaborate and include that physician is consulted with plan and/or placement): Client will remain at [facility] to await placement. Clinician's Name , Title, and Signature Josie Buck Emergency Services Clinician [facility] Human Services Make sure that you are photocopying and submitting this to [facility] records Dept. to be scanned into chart.
== END 2020-04-28 19:30 | disposition home or self-care (01) ==
PROVIDERS: Emergency Provider Physician Assistant; PCP Family Medicine
DX: R45.1 Restlessness and agitation (principal); F41.8 Other specified anxiety disorders; T42.8X5A Adverse effect of antiparkinsonism drugs and other central muscle-tone depressants, initial encounter; N18.3 Chronic kidney disease, stage 3 (moderate)
CPT/HCPCS: 36415; 36416; 80053; 82962; 96360; 96372; 99284; 70450; 81003; 81015; 84443; 85025; 99285; J2060

== ENCOUNTER 2020-05-06 08:16 | Outpatient (CLI) | payer MEDICARE, SELFPAY ==
[2020-05-06 20:47] LABS: COVID-19 RT-PCR UVMMC Result Negative (Negative)
== END 2020-05-06 08:36 ==
PROVIDERS: PCP Family Medicine; Visit Provider Family Medicine
DX: Z11.59 Encounter for screening for other viral diseases (principal)
CPT/HCPCS: U0003

== ENCOUNTER 2020-12-05 18:27 | Inpatient (IN) | payer MEDICARE, SELFPAY ==
[2020-12-05] VITALS (28 sets, daily range): BP systolic 86–125; BP diastolic 16–74; PULSE 61–91; RESP 18–39; TEMP 36–36.4; O2SAT 82–95
--- NOTE | 2020-12-05 18:29 | W.ED.GENAD ---
Discharge Plan Disposition Condition: Serious Discharge Details Chief Complaint: GenMedical Admit Date/Time: 12/05/20 22:42 Admit Provider: Mickey Townsend Attending Provider: Mickey Townsend Primary Care Provider: Kenyon Gifford ED Provider: Maria Guadalupe Guerrero Discharge Instructions Activity:: Bed confined/intubated Diet:: Other Discharge Orders Discharge Orders: Discharge Order (Routine); Ordered 12/08/20 Ordered By: Ángel Plummer Discharge Data Discharge Date/Time-TO BE ENTERED AT DEPARTURE: 12/06/20 00:00 Medical Decision Making Patient is a 70-year-old female brought in via EMS with chief complaint of weakness. She reports that weakness began last Tuesday. States that she has been sleeping majority of the time. Also reports that she has had a cough with stated this is been chronic for 10 years and denies any change. She denies any chest pain or shortness of breath. When initially triaged by nursing staff, patient had reported that she was suicidal. However, on further questioning she is reporting that she was suicidal this past summer for which she was admitted. She denies suicidality at this time. No homicidal thoughts. She denies any recent fevers or chills. No known sick contacts. She states that she did travel to [place] to see her son but he is tested frequently and does not believe that she had any Covid exposure. She has been endorsing headache. States that she had a brain tumor which was removed in 2017. Headache is similar to this. Denies any neck pain. No GI upset. She denies any change in her sense of taste or smell. On exam, patient appears fatigued. She is noted to hypoxic with an O2 in the mid 80s. Responded well to nasal cannula. Vital signs otherwise within normal limits. Lungs are clear. Normal neurologic exam. No nuchal rigidity. Abdomen is benign. Patient's history is fairly limited in part because she does have difficulty with recollection of things. COVID-19 is on the differential. Also consider potential PE given the weakness, lightheadedness, headache and hypoxia. She has not had any significant travel recently. No history of DVT. Patient does have history of CKD, consider this potentially worsening. Also considered ACS. I do not see evidence to suggest meningitis or encephalitis. Of also considered recurrence of her tumor given the headache and weakness. Also increase her risk of clot. Pneumonia, hypothyroidism, versus other also also on the differential. ECG was obtained. Nonspecific T wave abnormalities noted. No acute ischemic changes noted. Labs reviewed. No leukocytosis. Stable H&H. Patient's D-dimer is chest over age-adjusted cut off at 711. CMP significant for BUN of 30 and creatinine of 2.25. While patient is chronically elevated, this is higher than her baseline which appears to be around 1.8. AST and ALT are both minimally elevated but this is baseline for the patient. Troponin is less than 0.05. TSH within normal limits. Patient the patient's elevated creatinine, we are unable to obtain CT for PE protocol. We will instead obtain chest x-ray. CT reviewed by radiologist: FINDINGS: Brain: There is no evidence for acute intra-axial or extra-axial hemorrhage. There is no intracranial mass or mass effect. The basilar cisterns are patent. There is normal mae-white differentiation throughout the brain. Cerebral ventricles: No ventriculomegaly. Bones/joints: Again noted are postoperative changes of prior craniotomy at the anterior right temporal and frontal region with plates and screws in this region, unchanged. Paranasal sinuses: There are focal soft tissue density structures within the bilateral maxillary sinuses, only partially visualized on the right, suggesting sinus polyps. There is mild dependent fluid within the left maxillary sinus, suggesting history of sinusitis. Most of the maxillary sinuses were not within the [id number] of the prior study. Mastoid air cells: Visualized mastoid air cells are well aerated. Soft tissues: Unremarkable. IMPRESSION: 1. No acute intracranial process identified. 2. Stable postoperative changes of prior right frontotemporal craniotomy. 3. Findings suggest bilateral maxillary sinus polyps. Mild dependent fluid within the left maxillary sinus suggesting history of sinusitis. Discussed these findings with the patient. She continues to have oxygen demand. Discharge currently to 4 L. She is feeling improved after IV acetaminophen and fluids. Patient began to become more hypotensive. 250 cc bolus of normal saline was given. Patient did begin to respond to this. Hypotension was maximal when patient was sleeping. This did seem to correct when she was awoken. Patient continues to have oxygen demand. We will transition COVID-19 testing to rapid in-house testing. FINDINGS: Lungs: Low lung volumes. Pulmonary vasculature grossly normal. Perihilar interstitial changes with patchy peripheral interstitial and alveolar opacity in the left mid lung concerning for patchy pulmonary infection/pneumonia. Pleural space: Slightly blunted left lateral costophrenic angle, possibly trace effusion. No pneumothorax. Heart/Mediastinum: Heart size normal. No tracheal/mediastinal shift. Bones/joints: No acute osseous abnormalities are identified. IMPRESSION: 1. Patchy peripheral left-sided interstitial and alveolar opacities concerning for pneumonia. 2. Perihilar interstitial changes could reflect mild perihilar interstitial infection, interstitial edema, or subsegmental atelectasis. 3. Blunted left lateral costophrenic angle suspicious for minimal left basilar effusion. Discussed inpatient admission with the patient. Advised today primarily concerned about COVID-19 at this time. Discussed admission with Dr. Townsend. Patient and her are both in agreement with her staying in house. COVID-19 testing positive. HPI General Mode of arrival: wheelchair. Date/Time Provider Initiated Documentation: 12/05/20 18:29. Limitations to Documentation: no limitations. Information obtained by: patient, family (spoke with ) and RN notes reviewed. HPI Narrative: Patient is a 70-year-old female with past medical history significant for PTSD, CKD, CRISTINA, anxiety, fibromyalgia, memory impairment, hypothyroidism, hyperlipidemia, GERD. She brought in today in by family for feeling generally unwell. Patient answers questions without evidence of confusion but does give different answers to nursing staff as well as myself. Patient has recently traveled to [place] but states she stayed in her son's health is tested for COVID-19 frequently. States that since last Tuesday she has been having fatigue, body aches. She denies any fevers or chills. No shortness of breath or chest pain. Endorses general body aches but this is baseline for the Patient. She is reporting headache that she reports that this is baseline for her as well. Related Data Home Medications Medication Instructions Recorded Confirmed cholecalciferol (vitamin D3) 2,000 unit PO DAILY 01/29/13 12/05/20 cyclosporine 0.05 % eye drops in a 1 drp OP DAILY each 08/21/19 12/05/20 dropperette acetaminophen 325 mg tablet 650 mg PO Q4H PRN tab 10/03/19 12/05/20 coenzyme Q10 100 mg capsule 200 mg PO DAILY cap 10/03/19 12/05/20 magnesium gluconate 27 mg 27 mg PO DAILY tab 10/03/19 12/05/20 magnesium (500 mg) tablet clindamycin phosphate 1 % topical 1 applic TOPICAL BID #60 ml 10/29/19 12/05/20 solution levothyroxine 75 mcg tablet 75 mcg PO DAILY #90 tab-cap 02/11/20 12/05/20 baclofen 5 mg tablet 5 mg PO DAILY PRN 05/22/20 12/05/20 pravastatin 20 mg tablet 20 mg PO DAILY #90 tab-cap 07/07/20 12/05/20 gabapentin 600 mg tablet 600 mg PO QHS #30 tab 08/29/20 12/05/20 omeprazole magnesium 20 mg 20 mg PO DAILY 11/13/20 12/05/20 tablet,delayed release propranolol 10 mg tablet See Rx Instructions PO BID #270 tab 11/24/20 12/05/20 escitalopram oxalate 10 mg tablet 15 mg PO DAILY #135 tab 12/04/20 12/05/20 Previous Rx's Medication Instructions Recorded clindamycin phosphate 1 % topical 1 applic TOPICAL BID #60 ml 10/29/19 solution levothyroxine 75 mcg tablet 75 mcg PO DAILY #90 tab-cap 02/11/20 pravastatin 20 mg tablet 20 mg PO DAILY #90 tab-cap 07/07/20 gabapentin 600 mg tablet 600 mg PO QHS #30 tab 08/29/20 propranolol 10 mg tablet See Rx Instructions PO BID #270 tab 11/24/20 escitalopram oxalate 10 mg tablet 15 mg PO DAILY #135 tab 12/04/20 Allergies Allergy/AdvReac Type Severity Reaction Status Date / Time aspirin AdvReac Intermediate Nausea Verified 12/05/20 18:50 General IVY: 2 Review of Systems Constitutional Constitutional: Reports as per HPI, Denies chills, Reports fatigue, Denies fever(s), Denies frequent falls, Reports headache(s), Reports lethargy and Reports poor appetite Eyes Eyes: Reports as per HPI, Denies eye discharge and Denies irritation ENT Ears, Nose, Mouth, and Throat: Reports as per HPI, Reports headache(s) and Reports other (denies change in sense of smell or taste) Cardiovascular Cardiovascular: Reports as per HPI, Denies chest pain, Denies lightheadedness, Denies radiating jaw, neck or arm pain, Denies dyspnea and Denies dyspnea on exertion Respiratory Respiratory: Reports as per HPI, Denies chest congestion, Reports cough (reports chronic cough x 2 years, unchanged), Denies hemoptysis, Denies dyspnea and Denies dyspnea on exertion Gastrointestinal Gastrointestinal: Reports as per HPI, Denies abdominal pain, Denies change in bowel habits, Denies nausea and Denies vomiting Genitourinary Genitourinary: Reports as per HPI (denies dysurea, increased frequency/urgency) Integumentary/Breasts Skin/Breast: Reports as per HPI and Denies rash Neurologic Neurologic: Reports as per HPI, Denies frequent falls and Reports headache(s) Endocrine Endocrine: Reports fatigue [facility] Medical History Anxiety state (01/18/12) Cholelithiasis without obstruction (01/18/12) Chronic kidney disease (CKD), stage III (moderate) (01/18/12) Chronic pain (01/19/05) 01/2005 AT LEAST; H/O Fentanyl & oxycodone, tapered off 09/25/16. Medical Marijuanna begun 07/27/2016; h/o chronic pain workshop (, also [facility] x 2) Congenital absence of kidney Depressive disorder (01/18/12) Disorder of bone and articular cartilage (01/18/12) Fatigue (01/11/14) Frequent falls (10/14/15) Daily, legs stop working, has occurred for years, no injuries, no LOC Gastroesophageal reflux disease with esophagitis (01/18/12) EGD 11/12/20 Hyperlipidemia (01/18/12) Hypothyroidism (01/18/12) 05/2004 MILD TSH ELEVATIOIN, BEGAN REPLACEMENT 50 MCG Leg pain, right (09/07/16) circumferential buttock to mid lower leg, R, since 07/2016; Duplex US neg Memory impairment (01/18/12) Migraine (01/18/12) 12/2011 [facility]; BOTOX INJ ineffective; Dr Elizondo -> Dr Saul Wells 06/2016: Botox; Transcranial Magnetic Stimulator, failed Erenumab 02/06, starte Emgality 06/05/19 Obesity (BMI 30.0-34.9) (01/18/12) Other irritable bowel syndrome (11/23/16) Pain, joint, multiple sites (01/18/12) Paresthesia of upper limb (05/01/13) PARESTHESIAS BEGAN 2011; LEFT ARM, ?CERVICAL, ?BRACHIAL Primary fibromyalgia syndrome (01/19/05) Skin lesion (07/26/17) abdominal skin wounds ; see Dr Montalvo visit 01/2015 Sleep disturbance (12/13/14) Vitamin D deficiency (01/18/12) Surgical History S/P endoscopy 11/07/20 UGI esophageal Olivares-excessive acid reflux Status post craniotomy 08/03/19 [facility] Neurosurgery. right frontal for resection of meningioma Family History Mother , cervical ca at age 86. Cervical cancer Father Dementia Sister Multiple sclerosis Son No problems noted. Son No problems noted. Social History Smoking/Tobacco Use Status: Never Smoking risk assessment performed?: Yes Alcohol Intake: never Drug use: Never Substance use type: does not use Household members: spouse Housing: house Number of Children: 2 Communication Needs: Hard of Hearing and Corrective Lenses Current gender identity: female What is your relationship status?: How often do you talk on the phone with friends or family?: three or more times per week Panel score (0-1 are the most socially isolated patients): 2 What type of physical activity do you participate in: none and other Details: ot, pt Duration: 45-60 minutes/day Frequency: 1-2 times per week Seatbelt use: always Drive intox or ride w/intox driver trainer: No Working smoke detector in home: Yes Fire extinguisher in home: Yes Carbon monox detector in home: Yes Do you feel safe at home: Yes Do you feel safe in your relationship?: Yes Exam Const General: cooperative, comfortable, no acute distress, well developed, well groomed and ill appearing acutely Nutritional Appearance: average body habitus and well nourished Orientation: alert and awake [facility] Head: normal to inspection, normocephalic and atraumatic Ears: hearing grossly normal bilaterally, external ears normal and TM's normal bilaterally General nose exam: external nose normal and nares normal Face and sinus: normal facial exam, sinuses nontender and face symmetric Mouth: oral mucosae normal, lip normal, tongue normal, oropharynx normal and mucous membranes dry (appears dry) Teeth and gingiva: dentition normal Throat: posterior oropharynx normal, tonsils normal and uvula midline Eyes General: appearance normal, both eyes and all related structures Neck Neck: normal visual inspection, full ROM, no lymphadenopathy and no meningeal signs Resp Effort & Inspection: normal respiratory effort, able to speak in complete sentences and no respiratory distress Auscultation: clear to auscultation bilaterally, no rales, no rhonchi and no wheezes Cardio Rate: regular rate Rhythm: regular rhythm Heart Sounds: S1 normal and S2 normal GI Inspection: normal to inspection Palpation: soft, no hepatosplenomegaly and nontender Percussion: normal to percussion Auscultation: normal bowel sounds Skin General skin exam: no rashes or lesions noted Neuro General: patient alert and patient awake Cognition: normal cognition Speech: speech normal Gait: normal gait (walks to bed with assistance from nursing staff) Extrem General: no pedal edema and no calf tenderness Psych Appearance: grossly normal and well kempt Mental Status: mental status grossly normal Speech and Movement: speech and movement normal
--- NOTE | 2020-12-05 18:52 | NUR.NOTE ---
O2 on 2 L MARY. Pastora charge nurse and Maria Guadalupe provider notified pt states she is SI
--- NOTE | 2020-12-05 19:04 | NUR.NOTE ---
report to DAVIS Sharpe
--- NOTE | 2020-12-05 19:15 | RT.EKG_ITS ---
APPROVED REPORT Exam: Resting ECG Patient Location: E HR:69 bpm ECG Measurements Heart Rate 69 AXIS NE 148 P 37 QRSd 85 QRS -28 QT 408 T -28 QTc 437 Conclusion Sinus rhythm...normal P axis, V-rate 60- 99 Nonspecific T abnormalities, anterior leads...T <-0.10mV, V2-V4 New T wave inversion v1 - v4 No STEMI
[2020-12-05] MEDS: Normal Saline 1,000 ML 150 ML IV (19:59)
[2020-12-05] MEDS: ACETAMINOPHEN 1,000 MG/100 ML BTL 400 MG IVPB (20:00)
[2020-12-05 20:11] LABS: Abs Immature Grans 0.02 10^3/uL (0.0-0.06); Absolute Basophil Count 0.01 10^3/uL (0.0-0.2); Absolute Lymphocyte Count 0.76 10^3/uL (1.2-3.4); Absolute Monocyte Count 0.95 10^3/uL (0.1-0.8); Basophils % 0.1; HCT 44.1 % (36.0-46.0); HGB 14.5 g/dL (11.2-15.7); Immature Grans % 0.3; MCH 30.3 pg (27.0-33.0); MCHC 32.9 % (32.0-36.0); MCV 92.1 fL (80-95); MPV 10.7 fL (8.0-11.0); Monocytes % 13.7; Neutrophils % 74.9; Nucleated RBC 0 %; Platelet Count 207 10^3/uL (130-400); RBC 4.79 10^6/uL (3.93-5.22); RDW 13.4 % (11.7-14.6); RDW-SD 45.6 fL; WBC 6.94 10^3/uL (4.4-10.8)
[2020-12-05 20:26] LABS: ALT 60 U/L (14-59); AST 46 U/L (15-37); Alkaline Phosphatase 74 U/L (46-116); Anion Gap 10.9 mmol/L (3-11); BUN 30 mg/dL (7-18); CO2 24.1 mmol/L (21.0-32.0); CREATININE 2.25 mg/dL (0.55-1.02); Calcium 9.3 mg/dL (8.5-10.1); Chloride 101 mmol/L (98-107); Estimated GFR 21.44 (mL/min/1.73m2); Glucose 123 mg/dL (74-106); INR 1.1 (0.9-1.1); PTT Activated 25.9 sec (21.0-27.5); Potassium 4.2 mmol/L (3.5-5.1); Prothrombin Time 10.8 sec (9.3-11.0); Sodium 136 mmol/L (136-145); TSH (W/Ref FT4) 3.34 uIU/mL (0.36-3.74); Total Protein 8.3 g/dL (6.4-8.2)
[2020-12-05 20:38] LABS: D-Dimer 711 ng/mlFEU (<500)
[2020-12-05 20:56] LABS: ESR 42 mm/hr (0-30)
[2020-12-05 21:05] LABS: Troponin I < 0.05 ng/mL (<0.06)
--- NOTE | 2020-12-05 21:11 | DI.CT_ITS ---
EXAM: CT HEAD WO CLINICAL HISTORY: ART. TECHNIQUE: Imaging Protocol: Axial computed tomography images with coronal and sagittal reformatted images were created and reviewed COMPARISON: CT CT HEAD WO from 04/28/2020 FINDINGS: Ventricles and Extra axial spaces: Normal in size and morphology for the patient's age. Hemorrhage: None. Cerebral parenchyma: There are areas of decreased attenuation in the white matter most consistent wit h chronic microvascular ischemic change. No acute territorial infarct. Midline shift: None. Brainstem/Cerebellum: Normal. Calvarium: Stable prior right craniotomy. No acute fracture. Visualized Paranasal sinuses/Mastoids: Mucous retention cysts or polyps are seen in the maxillary sin uses. Mild mucosal thickening in the maxillary sinuses. The remaining sinuses and mastoid air cells are clear. Soft Tissues: Unremarkable. IMPRESSION: No acute intracranial process. RADIATION DOSE DELIVERED: 744.05mGy.cm Total DLP DATA REPOSITORY: All CT scans at this facility are submitted to the National Radiology Data Registry (NRDR) Dose Index Registry (DIR) with the [employer] ([employer]). RADIATION OPTIMIZATION: All CT scans at this facility use at least one of these dose optimization te chniques: automated exposure control; mA and/or kV adjustment per patient size (includes targeted exa ms where dose is matched to clinical indication); or iterative reconstruction.
--- NOTE | 2020-12-05 21:37 | DI.VRAD_ITS ---
PROCEDURE INFORMATION: Exam: CT Head Without Contrast Exam date and time: 12/05/2020 7:18 PM Age: 70 years old Clinical indication: Pain; Headache not specified; Prior surgery TECHNIQUE: Imaging protocol: Computed tomography of the head without contrast. Radiation optimization: All CT scans at this facility use at least one of these dose optimization techniques: automated exposure control; mA and/or kV adjustment per patient size (includes targeted exams where dose is matched to clinical indication); or iterative reconstruction. COMPARISON: CT HEAD WO 04/28/2020 2:59 PM FINDINGS: Brain: There is no evidence for acute intra-axial or extra-axial hemorrhage. There is no intracranial mass or mass effect. The basilar cisterns are patent. There is normal mae-white differentiation throughout the brain. Cerebral ventricles: No ventriculomegaly. Bones/joints: Again noted are postoperative changes of prior craniotomy at the anterior right temporal and frontal region with plates and screws in this region, unchanged. Paranasal sinuses: There are focal soft tissue density structures within the bilateral maxillary sinuses, only partially visualized on the right, suggesting sinus polyps. There is mild dependent fluid within the left maxillary sinus, suggesting history of sinusitis. Most of the maxillary sinuses were not within the [id number] of the prior study. Mastoid air cells: Visualized mastoid air cells are well aerated. Soft tissues: Unremarkable. IMPRESSION: 1. No acute intracranial process identified. 2. Stable postoperative changes of prior right frontotemporal craniotomy. 3. Findings suggest bilateral maxillary sinus polyps. Mild dependent fluid within the left maxillary sinus suggesting history of sinusitis. Dictated and Authenticated by: Star Bowen MD. Ordering:DALLIN Lerma MD
--- NOTE | 2020-12-05 22:09 | DI.RAD_ITS ---
EXAM: XR PORTABLE CHEST AP CLINICAL HISTORY: hypoxia TECHNIQUE: 2D digital imaging was performed. COMPARISON: CR,XR XR CHEST 2V PA LATERAL from 03/20/2020 FINDINGS: Poor inspiration with low lung volumes. MEDIASTINUM: Normal. HEART: Normal. PULMONARY VASCULATURE: Normal. LUNGS: Peripheral interstitial and alveolar infiltrate in the left mid lung. PLEURAL SPACE: No pneumothorax. Blunting of the left costophrenic angle suggesting a small pleural e ffusion. BONE:Within normal limits for the patient's age. OTHER FINDINGS:Normal. IMPRESSION: 1. Peripheral interstitial alveolar infiltrate in the left mid lung suspicious for pneumonia. 2. Blunting of the left costophrenic angle suggesting a small left pleural effusion. DATA REPOSITORY: RADIATION DOSE DELIVERED:
--- NOTE | 2020-12-05 22:26 | W.PM.HP.N ---
Date of service: 12/05/20 Time of Service: 22:27 Assessment and Plan Assessment and plan (1) SOB (shortness of breath): Status: Acute Assessment and plan: I would regard this as high risk Covid. Will await swab, PUI in meantime, further treatment depending on results. Will continue O2 for sats above 90. Will also push aggressive IVF given soft BP. EKG findings of doubtful significance but will f/u troponin. History of Present Illness History of Present Illness Chief Complaint: SOB Narrative: 70 female. Last week stayed in [place] visiting granddaughter and family, no precautions followed. Here now with 2 days of worsening cough, SOB, myalgias, diarrhea. In ER findings of note for tachypnea and hypoxia (sats in 80s). Normal white count, but with lymphopenia, CXR (to my read) showing scattered vague bilateral opacities. Additionally EKG shows nonspecific precordial changes, but trop negative and no CP. Rapid Covid pending at this time. Admitted for further management. Review of Systems All systems reviewed & are unremarkable except as noted in HPI and below [facility] Medical History Anxiety state (01/18/12) Cholelithiasis without obstruction (01/18/12) Chronic kidney disease (CKD), stage III (moderate) (01/18/12) Chronic pain (01/19/05) 01/2005 AT LEAST; H/O Fentanyl & oxycodone, tapered off 09/25/16. Medical Marijuanna begun 07/27/2016; h/o chronic pain workshop (, also [facility] x 2) Congenital absence of kidney Depressive disorder (01/18/12) Disorder of bone and articular cartilage (01/18/12) Fatigue (01/11/14) Frequent falls (10/14/15) Daily, legs stop working, has occurred for years, no injuries, no LOC Gastroesophageal reflux disease with esophagitis (01/18/12) EGD 11/12/20 Hyperlipidemia (01/18/12) Hypothyroidism (01/18/12) 05/2004 MILD TSH ELEVATIOIN, BEGAN REPLACEMENT 50 MCG Leg pain, right (09/07/16) circumferential buttock to mid lower leg, R, since 07/2016; Duplex US neg Memory impairment (01/18/12) Migraine (01/18/12) 12/2011 [facility] NEURO; BOTOX INJ ineffective; Dr Elizondo -> Dr Saul Wells 06/2016: Botox; Transcranial Magnetic Stimulator, failed Erenumab 02/06, starte Emgality 06/05/19 Obesity (BMI 30.0-34.9) (01/18/12) Other irritable bowel syndrome (11/23/16) Pain, joint, multiple sites (01/18/12) Paresthesia of upper limb (05/01/13) PARESTHESIAS BEGAN 2011; LEFT ARM, ?CERVICAL, ?BRACHIAL Primary fibromyalgia syndrome (01/19/05) Skin lesion (07/26/17) abdominal skin wounds ; see Dr Montalvo visit 01/2015 Sleep disturbance (12/13/14) Vitamin D deficiency (01/18/12) Surgical History S/P endoscopy 11/07/20 UGI esophageal Olivares-excessive acid reflux Status post craniotomy 08/03/19 [facility] Neurosurgery. right frontal for resection of meningioma Family History Mother , cervical ca at age 86. Cervical cancer Father Dementia Sister Multiple sclerosis Son No problems noted. Son No problems noted. Social History Smoking/Tobacco Use Status: Never Smoking risk assessment performed?: Yes Alcohol Intake: never Drug use: Never Substance use type: does not use Household members: spouse Housing: house Number of Children: 2 Communication Needs: Hard of Hearing and Corrective Lenses Current gender identity: female What is your relationship status?: How often do you talk on the phone with friends or family?: three or more times per week Panel score (0-1 are the most socially isolated patients): 2 What type of physical activity do you participate in: none and other Details: ot, pt Duration: 45-60 minutes/day Frequency: 1-2 times per week Seatbelt use: always Drive intox or ride w/intox production truck driver: No Working smoke detector in home: Yes Fire extinguisher in home: Yes Carbon monox detector in home: Yes Do you feel safe at home: Yes Do you feel safe in your relationship?: Yes Meds Home Medications and Allergies Home Medications Medication Instructions Recorded Confirmed Type cholecalciferol (vitamin D3) 2,000 unit PO DAILY 01/29/13 09/26/20 History cyclosporine 0.05 % eye drops in a 1 drp OP DAILY each 08/21/19 09/26/20 History dropperette acetaminophen 325 mg tablet 650 mg PO Q4H PRN tab 10/03/19 09/26/20 History coenzyme Q10 100 mg capsule 200 mg PO DAILY cap 10/03/19 09/26/20 History magnesium gluconate 27 mg 27 mg PO DAILY tab 10/03/19 09/26/20 History magnesium (500 mg) tablet clindamycin phosphate 1 % topical 1 applic TOPICAL BID #60 ml 10/29/19 09/26/20 Rx solution levothyroxine 75 mcg tablet 75 mcg PO DAILY #90 tab-cap 02/11/20 09/26/20 Rx baclofen 5 mg tablet 5 mg PO DAILY PRN 05/22/20 09/26/20 History fluticasone propionate 50 1 spray RUBY DAILY 05/22/20 09/26/20 History mcg/actuation nasal spray,suspension mometasone 200 mcg/actuation HFA 1 puff IH QHS 05/22/20 09/26/20 History aerosol inhaler hydroxyzine HCl 10 mg tablet 10 mg PO TID #270 tab 06/30/20 09/26/20 Rx pravastatin 20 mg tablet 20 mg PO DAILY #90 tab-cap 07/07/20 09/26/20 Rx gabapentin 600 mg tablet 600 mg PO QHS #30 tab 08/29/20 09/26/20 Rx omeprazole magnesium 20 mg 20 mg PO DAILY 11/13/20 History tablet,delayed release propranolol 10 mg tablet See Rx Instructions PO BID #270 tab 11/24/20 Rx escitalopram oxalate 10 mg tablet 15 mg PO DAILY #135 tab 12/04/20 Rx Allergies Allergy/AdvReac Type Severity Reaction Status Date / Time aspirin AdvReac Intermediate Nausea Verified 12/05/20 18:50 Exam Narrative Exam Narrative: 91/61, 67, 36.0, 26, 90% 4L. HEENT unremarkable; neck supple; lungs distant and obscured by ambient sounds; heart distant but RRR; abdomen soft and NT;l extremities w/o edema; neuro Ox3, nonfocal Results Labs Result diagrams: 12/05/20 20:00 12/05/20 20:00 Labs: Laboratory Results - last 24 hr 12/05/20 12/05/20 12/05/20 20:00 20:00 20:00 WBC 6.94 RBC 4.79 Hgb 14.5 Hct 44.1 MCV 92.1 MCH 30.3 MCHC 32.9 RDW 13.4 Plt Count 207 MPV 10.7 Immature Gran % 0.3 Neutrophils % 74.9 Lymphocytes % 11.0 Monocytes % 13.7 Eosinophils % 0.0 Basophils % 0.1 Nucleated RBC % 0 Absolute Neutrophils 5.20 Absolute Lymphocytes 0.76 L Absolute Monocytes 0.95 H Absolute Eosinophils 0.00 Absolute Basophils 0.01 ESR 42 H PT 10.8 INR 1.1 APTT 25.9 D-Dimer 711 H Sodium 136 Potassium 4.2 Chloride 101 Carbon Dioxide 24.1 Anion Gap 10.9 BUN 30 H Creatinine 2.25 H Estimated GFR/1.73 m2 21.44 Glucose 123 H Calcium 9.3 Total Bilirubin 1.0 AST 46 H ALT 60 H Alkaline Phosphatase 74 Troponin I Total Protein 8.3 H Albumin 4.0 TSH 3.34 12/05/20 20:00 WBC RBC Hgb Hct MCV MCH MCHC RDW Plt Count MPV Immature Gran % Neutrophils % Lymphocytes % Monocytes % Eosinophils % Basophils % Nucleated RBC % Absolute Neutrophils Absolute Lymphocytes Absolute Monocytes Absolute Eosinophils Absolute Basophils ESR PT INR APTT D-Dimer Sodium Potassium Chloride Carbon Dioxide Anion Gap BUN Creatinine Estimated GFR/1.73 m2 Glucose Calcium Total Bilirubin AST ALT Alkaline Phosphatase Troponin I < 0.05 Total Protein Albumin TSH Last Vital Signs Temp 36 C L 12/05/20 21:19 Pulse 88 12/05/20 21:28 Resp 26 H 12/05/20 21:30 BP 91/61 L 12/05/20 21:28 Pulse Ox 90 L 12/05/20 21:31 COVID-19 Screening Have you, or household traveled for leisure in last 14 days?: Yes Had IN PERSON contact w/suspected or confirmed C-19 person: No
--- NOTE | 2020-12-05 23:01 | DI.VRAD_ITS ---
PROCEDURE INFORMATION: Exam: XR Chest, 1 View Exam date and time: 12/05/2020 10:10 PM Age: 70 years old Clinical indication: Cough TECHNIQUE: Imaging protocol: XR of the chest Views: 1 view. Total images: 1 COMPARISON: CR XR CHEST 2V PA LATERAL 03/20/2020 11:01 PM FINDINGS: Lungs: Low lung volumes. Pulmonary vasculature grossly normal. Perihilar interstitial changes with patchy peripheral interstitial and alveolar opacity in the left mid lung concerning for patchy pulmonary infection/pneumonia. Pleural space: Slightly blunted left lateral costophrenic angle, possibly trace effusion. No pneumothorax. Heart/Mediastinum: Heart size normal. No tracheal/mediastinal shift. Bones/joints: No acute osseous abnormalities are identified. IMPRESSION: 1. Patchy peripheral left-sided interstitial and alveolar opacities concerning for pneumonia. 2. Perihilar interstitial changes could reflect mild perihilar interstitial infection, interstitial edema, or subsegmental atelectasis. 3. Blunted left lateral costophrenic angle suspicious for minimal left basilar effusion. Dictated and Authenticated by: Star Cohen MD. Ordering:DALLIN Lerma MD
[2020-12-05 23:43] LABS: Source Nasopharynx
[2020-12-06] VITALS (26 sets, daily range): BP systolic 114–143; BP diastolic 48–108; PULSE 44–91; RESP 18–36; TEMP 29–37.8; O2SAT 86–98
[2020-12-06 00:16] LABS: Troponin I < 0.05 ng/mL (<0.06)
[2020-12-06 00:17] LABS: LDH 302 U/L (81-234)
[2020-12-06 00:20] LABS: Influenza A PCR Negative (Negative); Influenza B PCR Negative (Negative); RSV PCR Negative (Negative)
[2020-12-06 00:23] LABS: Ferritin 257 ng/mL (8-252)
[2020-12-06 00:24] LABS: COVID-19 PCR POSITIVE (Negative)
[2020-12-06] MEDS: Lactated Ringers 1,000 ML 125 ML IV ×4 (01:12→21:37)
[2020-12-06] MEDS: Dexamethasone 10 MG/ML VIAL 6 MG IVP (01:13)
[2020-12-06] MEDS: Normal Saline Flush 10 ML SYR IVP ×2 (01:14→01:58)
[2020-12-06] MEDS: Lactated Ringers 500 ML 1000 ML IV (01:28)
[2020-12-06] MEDS: Gabapentin 600 MG TAB PO ×2 (01:57→22:34)
[2020-12-06] MEDS: Levothyroxine 75 MCG TAB PO (05:49)
[2020-12-06 05:55] LABS: HCT 40.9 % (36.0-46.0); HGB 13.5 g/dL (11.2-15.7); MCH 29.9 pg (27.0-33.0); MCV 90.5 fL (80-95); MPV 11.6 fL (8.0-11.0); Platelet Count 176 10^3/uL (130-400); RBC 4.52 10^6/uL (3.93-5.22); RDW 13.9 % (11.7-14.6); RDW-SD 45.4 fL; WBC 5.32 10^3/uL (4.4-10.8)
[2020-12-06 07:13] LABS: Troponin I < 0.05 ng/mL (<0.06)
[2020-12-06 07:22] LABS: Anion Gap 10.2 mmol/L (3-11); BUN 29 mg/dL (7-18); CO2 21.8 mmol/L (21.0-32.0); CREATININE 1.78 mg/dL (0.55-1.02); Calcium 8.4 mg/dL (8.5-10.1); Chloride 105 mmol/L (98-107); Glucose 139 mg/dL (74-106); Potassium 4.4 mmol/L (3.5-5.1); Sodium 137 mmol/L (136-145)
[2020-12-06] MEDS: hydrOXYzine HCL 10 MG TAB PO ×3 (08:22→19:53)
[2020-12-06] MEDS: Escitalopram 10 MG TAB 15 MG PO (08:22)
[2020-12-06] MEDS: Omeprazole 20 MG CAPCR PO ×2 (08:22→19:53)
[2020-12-06] MEDS: Cholecalciferol (Vitamin D3) 1,000 UNIT TAB 2000 UNITS PO (10:41)
--- NOTE | 2020-12-06 11:20 | PGE_ITS ---
Date of Service Date of service: 12/06/20 Time of Service: 11:20 Assessment and Plan Assessment and plan (1) CKD (chronic kidney disease) stage 4, GFR 15-29 ml/min: Status: Acute Assessment and plan: Creatinine of 1.78; in her baseline range. Avoid hypotension and nephrotoxic agents. Monitor (2) Hypothyroidism: Status: Chronic Assessment and plan: Cont replacement tx. (3) COVID-19: Status: Acute Assessment and plan: CXR: Peripheral interstitial alveolar infiltrate in the left mid lung suspicious for pneumonia. Blunting of the left costophrenic angle suggesting a small left pleural effusion. Cont Remdesivir and dexamethasone 6mg IV daily. Now on hi-flow nasal cannula with a flow rate of 40 L/min, FIO2 of 81, sPO2 of 96. Resting more comfortably. Pt declines proning after given information regarding the benefit of the prone position. Her anxiety is a hinderance. (4) Anxiety state: Status: Chronic Assessment and plan: + depression and anxiety. Cont escitalopram (5) Hyperlipidemia: Status: Chronic Assessment and plan: Cont pravastatin Subjective Subjective Patient reports: shortness of breath and afebrile; denies diarrhea Interval history since last seen: + bodyaches cough/some improvement noted Exam Const General: cooperative and no acute distress Nutritional Appearance: obese Orientation: oriented x3 and other (asleep. Wakens to verbal stimuli) Resp Effort & Inspection: normal respiratory effort Auscultation: clear to auscultation bilaterally and diminished lung sounds Cardio Rate: regular rate Rhythm: regular rhythm Heart Sounds: S1 normal and S2 normal GI Palpation: soft and nontender Neuro General: moves all extremities and no focal motor deficits Cranial Nerves: sense of smell intact, sense of smell altered and other (dimini shed sense of taste) Extrem General: no pedal edema and no calf tenderness Objective Last Vital Signs Temp 36.5 C 12/06/20 08:23 Pulse 70 12/06/20 08:23 Resp 28 H 12/06/20 08:23 BP 142/80 H 12/06/20 08:23 Pulse Ox 89 L 12/06/20 08:23 Laboratory Results - last 24 hr 12/05/20 12/05/20 12/05/20 20:00 20:00 20:00 WBC 6.94 RBC 4.79 Hgb 14.5 Hct 44.1 MCV 92.1 MCH 30.3 MCHC 32.9 RDW 13.4 Plt Count 207 MPV 10.7 Immature Gran % 0.3 Neutrophils % 74.9 Lymphocytes % 11.0 Monocytes % 13.7 Eosinophils % 0.0 Basophils % 0.1 Nucleated RBC % 0 Absolute Neutrophils 5.20 Absolute Lymphocytes 0.76 L Absolute Monocytes 0.95 H Absolute Eosinophils 0.00 Absolute Basophils 0.01 ESR 42 H PT 10.8 INR 1.1 APTT 25.9 D-Dimer 711 H Sodium 136 Potassium 4.2 Chloride 101 Carbon Dioxide 24.1 Anion Gap 10.9 BUN 30 H Creatinine 2.25 H Estimated GFR/1.73 m2 21.44 Glucose 123 H Calcium 9.3 Ferritin Total Bilirubin 1.0 AST 46 H ALT 60 H Alkaline Phosphatase 74 Lactate Dehydrogenase Troponin I Total Protein 8.3 H Albumin 4.0 TSH 3.34 COVID-19 Source SARS-CoV-2 (PCR) Influenza Type A (PCR) Influenza Type B (PCR) RSV (PCR) 12/05/20 12/05/20 12/05/20 20:00 23:10 23:50 WBC RBC Hgb Hct MCV MCH MCHC RDW Plt Count MPV Immature Gran % Neutrophils % Lymphocytes % Monocytes % Eosinophils % Basophils % Nucleated RBC % Absolute Neutrophils Absolute Lymphocytes Absolute Monocytes Absolute Eosinophils Absolute Basophils ESR PT INR APTT D-Dimer Sodium Potassium Chloride Carbon Dioxide Anion Gap BUN Creatinine Estimated GFR/1.73 m2 Glucose Calcium Ferritin Total Bilirubin AST ALT Alkaline Phosphatase Lactate Dehydrogenase Troponin I < 0.05 < 0.05 Total Protein Albumin TSH COVID-19 Source Nasopharynx SARS-CoV-2 (PCR) Positive A Influenza Type A (PCR) Negative Influenza Type B (PCR) Negative RSV (PCR) Negative 12/05/20 12/06/20 12/06/20 23:50 05:40 05:56 WBC 5.32 RBC 4.52 Hgb 13.5 Hct 40.9 MCV 90.5 MCH 29.9 MCHC 33.0 RDW 13.9 Plt Count 176 MPV 11.6 H Immature Gran % Neutrophils % Lymphocytes % Monocytes % Eosinophils % Basophils % Nucleated RBC % Absolute Neutrophils Absolute Lymphocytes Absolute Monocytes Absolute Eosinophils Absolute Basophils ESR PT INR APTT D-Dimer Sodium Potassium Chloride Carbon Dioxide Anion Gap BUN Creatinine Estimated GFR/1.73 m2 Glucose Calcium Ferritin 257 H Total Bilirubin AST ALT Alkaline Phosphatase Lactate Dehydrogenase 302 H Troponin I < 0.05 Total Protein Albumin TSH COVID-19 Source SARS-CoV-2 (PCR) Influenza Type A (PCR) Influenza Type B (PCR) RSV (PCR) 12/06/20 06:15 WBC RBC Hgb Hct MCV MCH MCHC RDW Plt Count MPV Immature Gran % Neutrophils % Lymphocytes % Monocytes % Eosinophils % Basophils % Nucleated RBC % Absolute Neutrophils Absolute Lymphocytes Absolute Monocytes Absolute Eosinophils Absolute Basophils ESR PT INR APTT D-Dimer Sodium 137 Potassium 4.4 Chloride 105 Carbon Dioxide 21.8 Anion Gap 10.2 BUN 29 H Creatinine 1.78 H Estimated GFR/1.73 m2 28.10 Glucose 139 H Calcium 8.4 L Ferritin Total Bilirubin AST ALT Alkaline Phosphatase Lactate Dehydrogenase Troponin I Total Protein Albumin TSH COVID-19 Source SARS-CoV-2 (PCR) Influenza Type A (PCR) Influenza Type B (PCR) RSV (PCR)
[2020-12-06] MEDS: Dexamethasone 4 MG/ML VIAL 6 MG IVP (12:17)
[2020-12-06] MEDS: Acetaminophen 325 MG TAB 650 MG PO ×2 (12:36→16:50)
--- NOTE | 2020-12-06 14:00 | PDOC.CMIN ---
- If Service Date Differs Date of service: 12/06/20 Time of Service: 14:42 Care Management Initial Assess REASON FOR HOSPITALIZATION:: SOB, hypoxia, COVID positive. PAST MEDICAL HISTORY/PAST SURGICAL HISTORY:: Anxiety state, cholelithiasis without obstruction, CKD Stage III moderate, chronic pain, congenital absense of kidney, depressive disorder-prior ES response for SI, disorder of bone and articular cartilage, fatigue, frequent falls, GERD, hyperlipidemia, hypothyroidism, leg pain right, memory impairment, migraine, obesity, IBS, paresthesia of upper limb, primary fibromyalgia syndrome, skin lesion, sleep disturbance, vitamin D deficiency, endoscopy, craniotomy PREVIOUS FUNCTIONAL STATUS/SOCIAL/FAMILY SUPPORTS:: Barbara resides in [facility] with her , Marcos. The couple identify spirtually as Gnosticism. Barbara struggles with baseline SI, anxiety, depression and chronic pain. She has hearing aides. She is independent at baseline and visited family in [place] last week without following COVID guidelines. CURRENT FUNCTIONAL STATUS:: Barbara is being closely monitored; requiring increased hi-mercedes O2 at this time. She is Covid positive and in isolation at this time. She is ambulating independently in her room. ADVANCE DIRECTIVES:: On file: Johan as agent, Qian Sotomayor as alternate. Others: Riaz Boyle. Has patient been provided with info about the portal/API?: No Did the patient sign up for the portal?: No CODE STATUS:: Full Code INSURANCE COVERAGE / FINANCIAL ISSUES:: [employer] [facility] PHYSICIAN:: Kenyon Gifford DO. POTENTIAL DISCHARGE NEEDS:: Follow up appointments. PATIENT/FAMILY EDUCATION NEEDS:: Review discharge instructions, discuss Ask Me Three. ANTICIPATED BARRIERS TO DISCHARGE:: None identified. TRANSPORTATION:: Via private vehicle with family. PLAN:: Barbara remains in isolation and is being closely monitored and treated. She is on high-mercedes O2, IV anti-virals and corticosteroids. She is struggling with increased anxiety, per provider. CM continues to follow.
[2020-12-06] MEDS: Enoxaparin 30 MG/0.3 ML SYR SC (14:42)
[2020-12-06] MEDS: Pravastatin 20 MG TAB PO (22:34)
[2020-12-07] VITALS (91 sets, daily range): BP systolic 96–143; BP diastolic 35–79; PULSE 34–76; RESP 2–39; TEMP 29–36.8; O2SAT 79–100
[2020-12-07] MEDS: Acetaminophen 325 MG TAB 650 MG PO (02:32)
[2020-12-07 02:47] LABS: COVID-19 RT-PCR UVMMC Result Positive (Negative)
[2020-12-07] MEDS: Levothyroxine 75 MCG TAB PO (05:53)
[2020-12-07] MEDS: Escitalopram 10 MG TAB 15 MG PO (07:30)
[2020-12-07] MEDS: Omeprazole 20 MG CAPCR PO (07:30)
[2020-12-07] MEDS: Cholecalciferol (Vitamin D3) 1,000 UNIT TAB 2000 UNITS PO (07:30)
[2020-12-07] MEDS: hydrOXYzine HCL 10 MG TAB PO ×2 (07:30→13:42)
[2020-12-07 08:40] LABS: ALT 61 U/L (14-59); AST 60 U/L (15-37); Albumin 2.9 g/dL (3.4-5.0); Alkaline Phosphatase 61 U/L (46-116); Anion Gap 11.4 mmol/L (3-11); BUN 28 mg/dL (7-18); Bilirubin, Total 0.5 mg/dL (0.2-1.0); CO2 19.6 mmol/L (21.0-32.0); CREATININE 1.79 mg/dL (0.55-1.02); Calcium 8.4 mg/dL (8.5-10.1); Chloride 107 mmol/L (98-107); Estimated GFR 27.92 (mL/min/1.73m2); Glucose 130 mg/dL (74-106); Sodium 138 mmol/L (136-145); Total Protein 6.6 g/dL (6.4-8.2)
[2020-12-07] MEDS: Lactated Ringers 1,000 ML 125 ML IV (08:43)
--- NOTE | 2020-12-07 11:13 | W.PM.PROGNOT ---
Date of Service Date of service: 12/07/20 Time of Service: 11:15 Assessment and Plan Assessment and plan (1) COVID-19: Status: Acute Assessment and plan: Cont Remdesivir and dexamethasone. Cont hi-flow nasal cannula. Pt did prone for 1 hour overnight but states it causes significant anxiety. Working to control her anxiety with goal of proning more frequently. Appears to be stable. (2) CKD (chronic kidney disease) stage 4, GFR 15-29 ml/min: Status: Acute Assessment and plan: Creatinine 1.79; in her baseline range. (3) Anxiety state: Status: Chronic Assessment and plan: H/O depression/anxiety/PTSD Hydroxyzine given for anxiety; allows her to sleep and results in improvement in RR. Ativan 0.5mg po Q6H prn initiated. Subjective Subjective Patient reports: no new complaints, shortness of breath and afebrile; denies nausea and vomiting Interval history since last seen: With minimal activity her O2 saturations drop into the mid to upper 80's; recovers with rest. + anxiety that results in shallow/panting-type breathing. Exam Const General: no acute distress and not diaphoretic Nutritional Appearance: obese Orientation: not awake (sleeping on left side) Resp Effort & Inspection: normal respiratory effort Auscultation: diminished lung sounds and rhonchi (soft) GI Palpation: soft and nontender Extrem General: no pedal edema and no calf tenderness Objective Last Vital Signs Temp 36.4 C L 12/07/20 07:45 Pulse 50 L 12/07/20 10:00 Resp 24 12/07/20 10:00 BP 112/60 12/07/20 10:00 Pulse Ox 97 12/07/20 10:00 Laboratory Results - last 24 hr 12/05/20 12/07/20 12/07/20 20:05 08:15 08:15 Sodium 138 Potassium 5.0 Chloride 107 Carbon Dioxide 19.6 L Anion Gap 11.4 H BUN 28 H Creatinine 1.79 H Estimated GFR/1.73 m2 27.92 Glucose 130 H Calcium 8.4 L Magnesium 2.0 Total Bilirubin 0.5 AST 60 H ALT 61 H Alkaline Phosphatase 61 Total Protein 6.6 Albumin 2.9 L SARS-CoV-2 (PCR) Positive A* Nasopharyn COVID-19 PCR Not Applicable Ref Test Perform Site [facility]
[2020-12-07] MEDS: Dexamethasone 4 MG/ML VIAL 6 MG IVP (11:30)
[2020-12-07] MEDS: Normal Saline Flush 10 ML SYR IVP ×2 (11:30→20:28)
[2020-12-07] MEDS: LORazepam 0.5 MG TAB PO (11:30)
--- NOTE | 2020-12-07 13:18 | CMPROGNOTE_ITS ---
Care Management Progress Note S/O: Barbara remains in isolation and is being closely monitored and treated. She is on high-mercedes O2, IV anti-virals and corticosteroids. She is struggling with increased anxiety, per provider and not agreeable to attempting prone positioning. She is up ambulating with RN, Hilda. CM continues to follow. A: 70 year old female admitted to [facility] 12/05/14 for SOB, Hypoxia-found to be Covid positive. P: Barbara remains in isolation and is being closely monitored and treated. She is on high-mercedes O2, IV anti-virals and corticosteroids. Anticipate she will return home when ready per MD, and transport via private vehicle with her . CM continues to follow.
[2020-12-07] MEDS: Enoxaparin 30 MG/0.3 ML SYR SC (13:41)
--- NOTE | 2020-12-07 14:57 | NUR.NOTE ---
Nursing Note: This nurse in patient room and noted patient talking continuously while her eyes were closed. Patient states I can't sleep because I keep talking. Patient denied having to get OOB to void. Patient had some chocolate shake, but refused saltines and egg salad.
[2020-12-07] MEDS: Benzonatate 200 MG CAP (19:00)
[2020-12-07] MEDS: dexmedeTOMidine IN 0.9 % NACL 400 MCG/100 ML BTL 11.5 MCG IVPB (20:05)
--- NOTE | 2020-12-07 21:24 | ANES_ITS ---
Date of service: 12/07/20 Time of Service: 21:24 Anesthesia Note Report Anesthesia Note: I was asked to evaluate Mrs. Boyle in regards to quelling her anxiety to aid in proning/repositioning related to her ongoing hypoxemia related to COVID. On my arrival to the ICU she was found laying on her left side with a HFNC (50 LPM, 0.9 FiO2) and a NRB mask on with a SPO2 of 79-83% (good waveform). She is tachypnic, but from the door her work of breathing does not appear to be too bad. Also, per the RN she does not see the use of accessory muscles. She has been encouraged to reposition frequently, but she has been unable to commit to getting into a prone position due to her anxiety. She has had lorazepam and hydroxyzine in the past with some effect but also some increasing confusion. There are a few case reports of the use of dexmedetomidine to aid in prone positioning and also toleration of HFNC in the COVID population. The RN was able to chat with her about this, and she is willing to try but wanted us to chat with her first. A call was placed to her and the plan was discussed. It was discussed that she may be at a critical junction where proning may aid in keeping her from being intubated. He expressed understanding and asked us to relay that the dog and the boys would like to see her home, and to ask her to try to go prone. A dexmedetomidine gtt was started at 0.5 mcg/kg/min. After ~ an hour on the infusion her HR had come down from the 50's to the 40's, but her MAPs have maintained in a normal range. She was able to move to prone with the assistance of the bedside RN. Initially her SPO2 did increase to 94%, but over the course of a few minutes it did drift back down, but only to the mid to high 80's. She also express some slight continued anxiety so she was given her evening hydroxyzine dose. LEAD FURNACE OPERATOR verbalized understanding of the plan and was encouraged to reach out to me if there are any questions or concerns in regards to the dexmed infusion, or related to hemodynamic changes that can occur from the dexmed.
[2020-12-07] MEDS: hydrOXYzine HCL 10 MG TAB (21:33)
[2020-12-07] MEDS: Furosemide 20 MG/2 ML VIAL IVP (22:20)
[2020-12-08] VITALS (193 sets, daily range): BP systolic 68–205; BP diastolic 32–96; PULSE 0–70; RESP 7–59; TEMP 31–36.4; O2SAT 53–99
--- NOTE | 2020-12-08 | DI.RAD_ITS ---
EXAM: XR PORTABLE CHEST AP CLINICAL HISTORY: COVID pneumonia, resp failure TECHNIQUE: 2D digital imaging was performed. COMPARISON: CR,XR XR PORTABLE CHEST AP from 12/05/2020 FINDINGS: MEDIASTINUM: Normal. HEART: Normal. PULMONARY VASCULATURE: Normal. LUNGS: Since the prior examination there have developed bilateral pulmonary opacities. PLEURAL SPACE: No pleural effusion or pneumothorax. BONE:Within normal limits for the patient's age. OTHER FINDINGS:Low lung volumes. IMPRESSION: Interval development of bilateral pulmonary opacities. Differential considerations include pulmonary edema or pneumonia. Viral pneumonia such as COVID-19 cannot be excluded in the appropriate clinical setting. Please correlate clinically. DATA REPOSITORY: RADIATION DOSE DELIVERED:
[2020-12-08] MEDS: Levothyroxine 75 MCG TAB PO (04:57)
[2020-12-08] MEDS: Cholecalciferol (Vitamin D3) 1,000 UNIT TAB 2000 UNITS PO (06:49)
[2020-12-08] MEDS: Benzonatate 200 MG CAP PO (06:49)
[2020-12-08] MEDS: Omeprazole 20 MG CAPCR PO (06:49)
[2020-12-08] MEDS: Escitalopram 10 MG TAB 15 MG PO (06:49)
[2020-12-08] MEDS: hydrOXYzine HCL 10 MG TAB PO (06:49)
--- NOTE | 2020-12-08 06:50 | NUR.NOTE ---
Anesthesia paged regarding emerging junctional beats in her already existing sinus bradycardia. recommendations were to hold precedex gtt at this time.
[2020-12-08 06:56] LABS: Abs Immature Grans 0.03 10^3/uL (0.0-0.06); Absolute Lymphocyte Count 0.66 10^3/uL (1.2-3.4); Absolute Monocyte Count 1.06 10^3/uL (0.1-0.8); Absolute Neutrophil Count 7.61 10^3/uL (1.2-6.7); HCT 39.6 % (36.0-46.0); HGB 13.1 g/dL (11.2-15.7); Immature Grans % 0.3; Lymphocytes % 7.1; MCH 29.6 pg (27.0-33.0); MCHC 33.1 % (32.0-36.0); MCV 89.6 fL (80-95); MPV 11.3 fL (8.0-11.0); Monocytes % 11.3; Neutrophils % 81.3; Nucleated RBC 0 %; Platelet Count 203 10^3/uL (130-400); RBC 4.42 10^6/uL (3.93-5.22); RDW 13.1 % (11.7-14.6); RDW-SD 43.1 fL; WBC 9.36 10^3/uL (4.4-10.8)
[2020-12-08 07:04] LABS: Anion Gap 10.2 mmol/L (3-11); BUN 32 mg/dL (7-18); CO2 24.8 mmol/L (21.0-32.0); CREATININE 1.85 mg/dL (0.55-1.02); Calcium 8.8 mg/dL (8.5-10.1); Chloride 108 mmol/L (98-107); Estimated GFR 26.87 (mL/min/1.73m2); Glucose 141 mg/dL (74-106); Potassium 4.4 mmol/L (3.5-5.1); Sodium 143 mmol/L (136-145)
--- NOTE | 2020-12-08 08:18 | DI.VRAD_ITS ---
PROCEDURE INFORMATION: Exam: XR Chest, 1 View Exam date and time: 12/08/2020 8:08 AM Age: 70 years old Clinical indication: Other: Covid pneumonia, respiratory failure TECHNIQUE: Imaging protocol: XR of the chest Views: 1 view. COMPARISON: CR XR PORTABLE CHEST AP 12/05/2020 9:56 PM FINDINGS: Lungs: Bilateral pulmonary opacities noted. The findings are nonspecific but are suggestive of COVID-19 pulmonary involvement in the correct clinical setting.. Pleural space: Unremarkable. No pleural effusion. No pneumothorax. Heart/Mediastinum: Unremarkable. No cardiomegaly. Bones/joints: Unremarkable. IMPRESSION: Bilateral pulmonary opacities noted. The findings are nonspecific but are suggestive of COVID-19 pulmonary involvement in the correct clinical setting.. Dictated and Authenticated by: Juan Diego MD. Ordering:MELISSA Neal MD
--- NOTE | 2020-12-08 09:30 | CMPROGNOTE_ITS ---
- If Service Date Differs Date of service: 12/08/20 Time of Service: 09:30 Care Management Progress Note S/O: Barbara remains in the ICU on Covid isolation and is being closely monitored and treated. She is on high-mercedes O2, IV anti-virals and corticosteroids. She continues to struggle with anxiety however she has been able to tolerate some periods of proning. Barbara will be intubated then transferred to [facility] this afternoon. CM unable to meet with her due to the isolation. A: 70 year old female admitted to [facility] 12/05/14 for SOB, Hypoxia-found to be Covid positive. P: Barbara remains on Covid isolation in the ICU. She is being intubated this afternoon and will be transferred to [facility] for further treatment. Transport will be either by air or via ambulance, coordinated by nursing accounting supervisor. CM will continue to support patient and family.
--- NOTE | 2020-12-08 11:27 | W.NUTRFU ---
Date of service: 12/08/20 Time of Service: 11:27 Nutritional Follow up NOTE: 70 year old covid + female with PMH: s/p right frontal resection secondary to meningioma 2018, hypothyroidism, IBS, GERD, HLD, CKD with class 2 obesity. Pt has had minimal intake for last 3 days, nursing reports may need intubation. In view of BMI, expect pt will be able to tolerate upto 5 days with minimal intake if receiving IV hydration. Will continue to follow. Time Spent in Nutritional Counseling and Treatment: 0
[2020-12-08] MEDS: Dexamethasone 4 MG/ML VIAL 6 MG IVP (12:04)
--- NOTE | 2020-12-08 12:33 | W.PM.DS.N ---
Date of service: 12/08/20 Time of Service: 09:26 DS: Diagnosis Discharge Diagnosis (1) COVID-19: Status: Acute (2) CKD (chronic kidney disease) stage 4, GFR 15-29 ml/min: Status: Acute (3) Anxiety state: Status: Chronic Discharge Plan Disposition Patient Disposition: [facility] Condition: Serious Discharge Details Reason For Visit: SOB, HYPOXIA Admit Date/Time: 12/05/20 22:42 Admit Provider: Mickey Townsend Attending Provider: Mickey Townsend Primary Care Provider: [facility] Course Hospital Course: This is a 70 yo female with a h/o CKD, congenital absence of kidney, depression/anxiety, HLD, hypothyroidism, obesity. The week prior to admission she stayed in [place] visiting granddaughter and family; no precautions followed. Presented with 2 days of worsening cough, SOB, myalgias, diarrhea. In ER findings of note for tachypnea and hypoxia (sats in 80s). Normal white count, but with lymphopenia, CXR showing scattered vague bilateral opacities. Additionally EKG shows nonspecific precordial changes, but trop negative and no CP. Rapid Covid test was positive. Remdesivir and IV dexamethasone initiated. She was initially placed on O2 per NC but her oxygen demands increased and hi-flow nasal cannula initiated. Due to her anxiety she was unable to maintain a prone position. However she did eventually tolerate 1 hour of proning before being transferred to the ICU. Her O2 demands continued to increase as did her work of breathing. In addition to the hi-flow NC that was eventually titrated to 60L/flow, and a NRB initiated. Precedex was given and this allowed her to prone, but she developed bradycardia with a HR as low as the upper 20's with an intermittent junctional rhythm. Precedex was stopped and her HR returned to a sinus rhythm with a rate of 39-40. Her work of breathing did improve and her RR normalized. Patient intubated and stable. Her WBC count has remained normal with a lymphopenia. ESR 42. NA normal. Potassium 4.4. BUN 32, Creatinine 1.85. CXR reading by radiology: Bilateral pulmonary opacities noted. The findings are nonspecific but are suggestive of COVID-19 pulmonary involvement in the correct clinical setting.. Home Meds and New Rx's Prescriptions: No Action cholecalciferol (vitamin D3) 1,000 UNIT tablet 2,000 unit PO DAILY RF: 0 Restasis 0.05 % dropperette 1 drp OP DAILY RF: 0 coenzyme Q10 100 mg capsule 200 mg PO DAILY RF: 0 magnesium gluconate [Mag-G] 27 mg magnesium (500 mg) tablet 27 mg PO DAILY RF: 0 acetaminophen [Tylenol] 325 mg tablet 650 mg PO Q4H PRNRF: 0 clindamycin phosphate 1 % solution 1 applic Topical BID Qty: 60 RF: 0 levothyroxine [Synthroid] 75 mcg tablet 75 mcg PO DAILY Qty: 90 RF: 3 baclofen 5 mg tablet 5 mg PO DAILY PRNRF: 0 pravastatin 20 mg tablet 20 mg PO DAILY Qty: 90 RF: 3 Hold Instructions: Home Medication placed on hold at Doctor's office gabapentin 600 mg tablet 600 mg PO QHS Qty: 30 RF: 11 omeprazole magnesium [Prilosec OTC] 20 mg tablet,delayed release (DR/EC) 20 mg PO DAILY RF: 0 propranolol 10 mg tablet See Rx Instructions PO BID Qty: 270 RF: 3 escitalopram oxalate 10 mg tablet 15 mg PO DAILY Qty: 135 RF: 3 Discharge Instructions Activity:: Bed confined/intubated Diet:: Other Discharge Orders Discharge Orders: Discharge Order (Routine); Ordered 12/08/20 Ordered By: Ángel Plummer DS: Summary Status at Discharge Functional status at discharge: bed bound Overall status at discharge: patient is not back to baseline Mental Status: mental status grossly normal Speech and Movement: speech and movement normal Mood: congruent mood Affect: normal affect Exam Narrative Exam Narrative: Lying on left side. NRB and high-flow nasal cannula in place. Const General: cooperative and no acute distress Nutritional Appearance: obese Resp Effort & Inspection: normal respiratory effort Auscultation: rhonchi Cardio Rate: bradycardic Rhythm: regular rhythm Heart Sounds: S1 normal and S2 normal GI Palpation: soft and nontender Skin General skin exam: no rashes or lesions noted Extrem General: no pedal edema and no calf tenderness Psych Mental Status: mental status grossly normal Speech and Movement: speech and movement normal Mood: congruent mood Affect: normal affect DS: Data Vitals/I&O Vitals and I&O: Vital Signs Temperature 36.3 C L 12/08/20 08:02 Temperature Source Temporal Artery Scan 12/08/20 08:02 Pulse 40 L 12/08/20 10:00 Pulse Rhythm Regular 12/06/20 08:10 Pulse 39 L 12/08/20 03:32 Respiratory Rate 38 H 12/08/20 10:00 Respiratory Effort 12/08/20 08:02 Respiratory Depth Shallow 12/08/20 08:02 Respiratory Pattern Tachypnea 12/08/20 08:02 Blood Pressure 131/55 L 12/08/20 08:02 Blood Pressure Mean 80 12/08/20 08:02 Blood Pressure Position Left Lateral 12/08/20 08:02 Pulse Oximetry 98 12/08/20 10:00 Oxygen Delivery Method Hi Flow System 12/08/20 08:02 Oxygen Flow Rate 60 12/08/20 08:02 Fraction of Inspired Oxygen (FIO2) 100 12/08/20 10:00 Pain Level 0 12/08/20 08:02 Comment 12/06/20 01:22 Intake & Output 12/07/20 12/08/20 12/08/20 23:59 11:59 23:59 Intake Total 32.008 / 1577.841 165.435 / 165.435 Output Total 585 / 1385 1350 / 1350 Balance -552.992 / 192.841 -1184.565 / -1184.565 Intake: IV 32.008 / 1477.841 160.435 / 160.435 Oral 5 / 5 Output: Urine 585 / 1385 1350 / 1350 Other: Urine Color Yellow Yellow Urine Appearance Clear Cloudy Sediment Urine Odor Normal Comment bedside comode to void, deneis need to void at this time. Tay cath in place patent and draining Voiding Methods Bedside Commode Data Completed and Pending Labs on day of discharge: Labs from last 24 hours 12/08/20 12/08/20 06:10 06:10 WBC 9.36 RBC 4.42 Hgb 13.1 Hct 39.6 MCV 89.6 MCH 29.6 MCHC 33.1 RDW 13.1 Plt Count 203 MPV 11.3 H Immature Gran % 0.3 Neutrophils % 81.3 Lymphocytes % 7.1 Monocytes % 11.3 Eosinophils % 0.0 Basophils % 0.0 Nucleated RBC % 0 Absolute Neutrophils 7.61 H Absolute Lymphocytes 0.66 L Absolute Monocytes 1.06 H Absolute Eosinophils 0.00 Absolute Basophils 0.00 Sodium 143 Potassium 4.4 Chloride 108 H Carbon Dioxide 24.8 Anion Gap 10.2 BUN 32 H Creatinine 1.85 H Estimated GFR/1.73 m2 26.87 Glucose 141 H Calcium 8.8 PFSH Medical History Anxiety state (01/18/12) Cholelithiasis without obstruction (01/18/12) Chronic kidney disease (CKD), stage III (moderate) (01/18/12) Chronic pain (01/19/05) 01/2005 AT LEAST; H/O Fentanyl & oxycodone, tapered off 09/25/16. Medical Marijuanna begun 07/27/2016; h/o chronic pain workshop (, also [facility] x 2) Congenital absence of kidney Depressive disorder (01/18/12) Disorder of bone and articular cartilage (01/18/12) Fatigue (01/11/14) Frequent falls (10/14/15) Daily, legs stop working, has occurred for years, no injuries, no LOC Gastroesophageal reflux disease with esophagitis (01/18/12) EGD 11/12/20 Hyperlipidemia (01/18/12) Hypothyroidism (01/18/12) 05/2004 MILD TSH ELEVATIOIN, BEGAN REPLACEMENT 50 MCG Leg pain, right (09/07/16) circumferential buttock to mid lower leg, R, since 07/2016; Duplex US neg Memory impairment (01/18/12) Migraine (01/18/12) 12/2011 [facility] [place] [facility]; BOTOX INJ ineffective; Dr Elizondo -> Dr Saul Wells 06/2016: Botox; Transcranial Magnetic Stimulator, failed Erenumab 02/06, starte Emgality 06/05/19 Obesity (BMI 30.0-34.9) (01/18/12) Other irritable bowel syndrome (11/23/16) Pain, joint, multiple sites (01/18/12) Paresthesia of upper limb (05/01/13) PARESTHESIAS BEGAN 2011; LEFT ARM, ?CERVICAL, ?BRACHIAL Primary fibromyalgia syndrome (01/19/05) Skin lesion (07/26/17) abdominal skin wounds ; see Dr Montalvo visit 01/2015 Sleep disturbance (12/13/14) Vitamin D deficiency (01/18/12) Surgical History S/P endoscopy 11/07/20 UGI esophageal Olivares-excessive acid reflux Status post craniotomy 08/03/19 [facility] [place]. right frontal for resection of meningioma Family History Mother , cervical ca at age 86. Cervical cancer Father Dementia Sister Multiple sclerosis Son No problems noted. Son No problems noted. Social History Smoking/Tobacco Use Status: Never Smoking risk assessment performed?: Yes Alcohol Intake: never Drug use: Never Substance use type: does not use Household members: spouse Housing: house Number of Children: 2 Communication Needs: Hard of Hearing and Corrective Lenses Current gender identity: female What is your relationship status?: How often do you talk on the phone with friends or family?: three or more times per week Panel score (0-1 are the most socially isolated patients): 2 What type of physical activity do you participate in: none and other Details: ot, pt Duration: 45-60 minutes/day Frequency: 1-2 times per week Seatbelt use: always Drive intox or ride w/intox putaway driver: No Working smoke detector in home: Yes Fire extinguisher in home: Yes Carbon monox detector in home: Yes Do you feel safe at home: Yes Do you feel safe in your relationship?: Yes
--- NOTE | 2020-12-08 15:31 | ANES_ITS ---
Date of service: 12/08/20 Time of Service: 15:31 Anesthesia Note Report Anesthesia Note: Consulted to evaluate patient for intubation at the request of [facility] [place] accepting facility for safety. Patient is a 70 yo female with severe covid respiratory distress/failure as well as other comorbidities. She is currently on a high flow NC at 60LPM on 91% FiO2 with SpO2 75%-83%. At these settings, the ambulance oxygen supply would not last for the transport time, therefore increasing the patients risk. Plan discussed with patient for intubation and she agrees. Before entering room, team meeting occurred to discuss concerns and plan as well as what other items would be available outside of room if needed with runner present. Entered room and discussed plan with patient again, all airway equipment prepared, bed positioned, and patient positioned with head of bed elevated and ear to sternal notch airway position. Pt. continued on HFNC therapy as well as a NRB at 15 LPM. At 1400, patient induced with 30mg propofol, 120mg ketamine, followed by 120mg succinylcholine. No cricoid pressure held, no BVM ventilations given. Glidescope #3 blade introduced with grade 1 view and #7.0mm ETT secured at 21cm at teeth placed on first attempt with good visualization. Despite no delay in placing airway, patient had a profound desaturation to the teens and was placed immediately on the ventilator with good ETCO2 waveform and appropriate viral filters in place. Settings were RR 14, Vt of 6ml/kg, PEEP 8, FiO2 100%. PEEP soon increased to 12 and oxygen saturation improved to 95% in a short time. Pt. given 50mg rocuronium for continued vent synchrony as succinylcholine was wearing off and was immediately placed on a propofol infusion at 75mcg/kg/min after a bolus of 40mg IV as she was hypertensive. Patients head of bed also raised to 30 degrees. NG tube placed by RN and RT managed ventilator. Additional IV placed in left AC using a 20 g arrowcath with ultrasound and 1st attempt success. Report given to managing provider as patient is being prepared for transfer. I left her ventilating/oxygenating well and hemodynamically stable requiring no vasopressors.
[2020-12-08] MEDS: Vecuronium 10 MG VIAL ×2 (15:56→19:29)
[2020-12-08] MEDS: fentaNYL 100 MCG/2 ML VIAL (15:57)
[2020-12-08] MEDS: PROPOFOL 1,000 MG/100 ML BTL 60 MG (19:10)
[2020-12-08] MEDS: Water,Injection,Sterile 10 ML VIAL (19:11)
== END 2020-12-08 16:26 | disposition short-term general hospital (02) | DRG 208 ==
LOC: ER 23:03 → MS 12-06 00:24 → ICU 12-07 13:50
PROVIDERS: Family Medicine; Admitting Provider General Practice; Emergency Provider Physician Assistant; PCP Family Medicine; Visit Provider General Practice
DX: U07.1 COVID-19 (principal); J12.82 Pneumonia due to coronavirus disease 2019; Q60.0 Renal agenesis, unilateral; N18.4 Chronic kidney disease, stage 4 (severe); R00.1 Bradycardia, unspecified; E03.9 Hypothyroidism, unspecified; F41.1 Generalized anxiety disorder; E78.5 Hyperlipidemia, unspecified; G89.29 Other chronic pain; K21.00 Gastro-esophageal reflux disease with esophagitis, without bleeding; G43.909 Migraine, unspecified, not intractable, without status migrainosus; E66.9 Obesity, unspecified; Z68.38 Body mass index [BMI] 38.0-38.9, adult; E55.9 Vitamin D deficiency, unspecified; K58.9 Irritable bowel syndrome, unspecified; F32.9 Major depressive disorder, single episode, unspecified
CPT/HCPCS: 36415; 80048; 80053; 85027; 85652; 93005; 96361; 96375; 99222; 99233; 99239; 99285; U0003; 70450; 71045; 82728; 83615; 83735; 84443; 84484; 85025; 85379; 85610; 85730; 93010; 94002; J0131; J1100; J1650; J1940; J1941; J3010